=== PATIENT | female | born 1960 | race Caucasian/White ===

== ENCOUNTER 2020-05-25 11:11 | Emergency (ER) | payer OTHER, SELFPAY ==
--- OUTSIDE RECORDS SUMMARY | 2020-05-25 11:13 | XMS REPORT ---
:1960 Author Organization [facility] Address [address] [facility] [address] [place] [address] Care Team Providers Name Role Phone Jose Antonio Unavailable [phone] PROBLEMS Type Condition ICD9-CM [id number] Onset Condition SNOMED Code Notes Code Code Dates Status Problem Loss of R63.0 Active 25978859 appetite ALLERGIES No Known Allergies ENCOUNTERS from 1960 to 2020-05-04 Encounter Location Date Provider Diagnosis [facility] [address] [facility] [address] Apr, Cesar Brady Weight loss R63.4 ; Family Medicine [place], [place] Loss of appetite R63.0 [id number] ; Generalized abdominal pain R10.84 and Night sweat s R61 IMMUNIZATIONS No Information SOCIAL HISTORY Tobacco Use: Social History Observation Description Date Details (start date - stop date) Current Smoker Sex Assigned At : Social History Observation Description Sex Assigned At Unknown Tobacco Use/Smoking Question Answer Notes Are you a current smoker REASON FOR REFERRAL No Information VITAL SIGNS Height 62 in Apr, Weight 116.6 lbs Apr, Temperature 98.1 degrees Fahrenheit Apr, BMI 21.32 kg/m2 Apr, Oximetry 95 % Apr, Respiratory Rate 16 /min Apr, Blood pressure systolic 119 mm Hg Apr, Blood pressure diastolic 63 mm Hg Apr, MEDICATIONS No Known Medications PROCEDURES No Information RESULTS No Results REASON FOR VISIT Establish Care; Stomach Pain; Weight Loss MEDICAL (GENERAL) HISTORY Type Description Date Surgical History partial hysterectomy Surgical History neck surgery 2014 Goals Section No Information Health Concerns No Information MEDICAL EQUIPMENT No Information MENTAL STATUS No Information FUNCTIONAL STATUS No Information ASSESSMENTS Encounter Date Diagnosis Notes Apr, Night sweats (ICD-10 - R61) Apr, Generalized abdominal pain (ICD-10 - R10 .84) Apr, Loss of appetite (ICD-10 - R63.0) Apr, Weight loss (ICD-10 - R63.4) PLAN OF TREATMENT Treatment Notes Assessment Notes Clinical Notes Generalized abdominal pain 59 F presents with abd pain with weight loss, night sweats, tobacco use concerni ng for malignancy vs IBS vs H pylori. Will refer to GI for further work up and evaluation, CT abd/pel and routine labs.-f/u in 2 weeks with results.-trial of OTC PPI and oral fiber Treatment Notes Test Name Order Date CT Abdomen and Pelvis 2020-05-04 Future Test Test Name Order Date CBC With Differential/Platelet [id number] Comp. Metabolic Panel (14) (CMP) [id number] TSH reflex to T4 [id number] Lipase, Serum [id number] Next Appt Details 2 Weeks Reason:labs and imaging Provider Name:Cesar Brady 2020-05-19 09:40 :00 AM, [address], [address], [place], [address], Follow Up:2 Weekslabs and imaging
--- OUTSIDE RECORDS SUMMARY | 2020-05-25 11:13 | XMS REPORT ---
:1960 Author Organization [facility] Address [address] [facility] [address] [place] [address] Care Team Providers Name Role Phone Jose Antonio Unavailable [phone] PROBLEMS Type Condition ICD9-CM [id number] Onset Condition SNOMED Code Notes Code Code Dates Status Problem Loss of R63.0 Active 14334379 appetite ALLERGIES No Known Allergies ENCOUNTERS from 1960 to 2020-05-05 Encounter Location Date Provider [facility] [address] [facility] [address] [place] Apr, [place] [address] IMMUNIZATIONS No Information SOCIAL HISTORY Tobacco Use: Social History Observation Description Date Details (start date - stop date) Current Smoker Sex Assigned At : Social History Observation Description Sex Assigned At Unknown Tobacco Use/Smoking Question Answer Notes Are you a current smoker REASON FOR REFERRAL No Information VITAL SIGNS No information MEDICATIONS No Information PROCEDURES No Information RESULTS No Results REASON FOR VISIT Blood Work Results MEDICAL (GENERAL) HISTORY Type Description Date Surgical History partial hysterectomy Surgical History neck surgery 2014 Goals Section No Information Health Concerns No Information MEDICAL EQUIPMENT No Information MENTAL STATUS No Information FUNCTIONAL STATUS No Information ASSESSMENTS No Information PLAN OF TREATMENT Next Appt Details Provider Name:Cesar Brady 2020-05-19 09:40 :00 AM, [address] [facility] [address], [place], [address],
--- OUTSIDE RECORDS SUMMARY | 2020-05-25 11:13 | XMS REPORT | Continuity of Care Document ---
:1960 Author Organization [facility] t Address [address] [place] [address] Care Team Providers Name Role Phone Unavailable Unavailable Unavailable Problems This patient has no known problems. Allergies, Adverse Reactions, Alerts This patient has no known allergies or adverse reactions. Medications This patient has no known medications. Procedures This patient has no known procedures. Encounters Start End Encounter Admission Attending Care Care Encounter Source Date/Time Date/Time Type Type Clinicians Facility Department ID 2020-05-19 2020-05-[address] [facility] [id number] [facility] 2020-05-05 2020-05-[address] [facility] [id number] [facility] 2020-05-01 2020-05-[address] [facility] [id number] [facility] Results This patient has no known results.
--- OUTSIDE RECORDS SUMMARY | 2020-05-25 11:13 | XMS REPORT ---
:1960 Author Organization [facility] Address [address] [facility] [address] [place] [address] Care Team Providers Name Role Phone Jose Antonio Unavailable [phone] PROBLEMS Type Condition ICD9-CM [id number] Onset Condition SNOMED Code Notes Code Code Dates Status Problem Loss of R63.0 Active 24713720 appetite ALLERGIES No Known Allergies ENCOUNTERS from 1960 to 2020-05-24 Encounter Location Date Provider Diagnosis [facility] [address] [facility] 300 May, Cesar Brady Weight loss R63.4 ; Family Medicine [place], [place] Loss of appetite R63.0 [id number] ; Generalized abdominal pain R10.84 and Night sweat s R61 IMMUNIZATIONS No Information SOCIAL HISTORY Tobacco Use: Social History Observation Description Date Details (start date - stop date) Current Smoker Sex Assigned At : Social History Observation Description Sex Assigned At Unknown Tobacco Use/Smoking Question Answer Notes Are you a current smoker REASON FOR REFERRAL No Information VITAL SIGNS Height 62 in May, Weight 115.0 lbs May, Temperature 98.6 degrees Fahrenheit May, BMI 21.03 kg/m2 May, Oximetry 96 % May, Respiratory Rate 16 /min May, Blood pressure systolic 110 mm Hg May, Blood pressure diastolic 51 mm Hg May, MEDICATIONS Medication SIG (Take, Route, Frequency, Start Date End Date Status Duration) Percocet 5-325 MG 1 tablet as needed Orally every 12 May, 1 7 May, 2020 Active hrs for 14 days PROCEDURES No Information RESULTS No Results REASON FOR VISIT 3 week f/u [phone] MEDICAL (GENERAL) HISTORY Type Description Date Surgical History partial hysterectomy Surgical History neck surgery 2013 Goals Section No Information Health Concerns No Information MEDICAL EQUIPMENT No Information MENTAL STATUS No Information FUNCTIONAL STATUS No Information ASSESSMENTS Encounter Date Diagnosis Notes May, Night sweats (ICD-10 - R61) May, Generalized abdominal pain (ICD-10 - R10 .84) May, Loss of appetite (ICD-10 - R63.0) May, Weight loss (ICD-10 - R63.4) PLAN OF TREATMENT Medication Medication Name Sig Start Date Stop Date Percocet 5-325 MG 1 tablet as needed Orally every 12 hrs May, May, for 14 days Treatment Notes Assessment Notes Clinical Notes Weight loss 59 F presents with weight loss and epigastric pain for several months. labs unremarkable. CT not done, awaiting prio r athorization. Unclear if insurance cover s imaging.in the meantime will order abd U S to R/o gall stones, however atypical s/s for gall stones.-percocet for pain mgmnt until GI evaluation and CT abd. Generalized abdominal pain 59 F presents with abd pain with weight loss, night sweats, tobacco use concerni ng for malignancy vs IBS vs H pylori. Will refer to GI for further work up and evaluation, CT abd/pel and routine labs.-f/u in 2 weeks with results.-trial of OTC PPI and oral fiber Treatment Notes Test Name Order Date Ultrasound : Abdominal 2020-05-24 Next Appt Details Provider Name:Cesar Brady, 2020-06-02 08:20 :00 AM, [address] [facility], [address], [place], [address], Insurance Providers Payer Name Payer Payer Insured Patient Coverage Coverage Address Phone Name Relationship to Start Date End Date Insured [employer] [phone] Adelso Jean self [employer] [place] [address] ([facility]) [phone]
[2020-05-25] MEDS ORDERED: NA CHLORIDE 0.9% 1,000 ML ONE (12:19)
[2020-05-25] MEDS ORDERED: MAGNESIUM SULFATE 1 gm IVPB 1 GM/100 ML BAG IV ONE (12:19)
[2020-05-25 12:33] LABS: Absolute Lymphocytes (CBC) 2.5 K/uL (0.7-4.9); Basophils % 0.7 % (0-1.3); Hematocrit 36.9 % (36.0-45.0); Lymphocytes % 22.5 % (15.3-44.8); MPV 8.1 fL (7.6-11.3); RBC Red Blood Cell Count 4.09 M/uL (3.86-4.86)
[2020-05-25] MEDS ORDERED: FENTANYL CITR 100 MCG/2 ML ONE (12:42)
[2020-05-25 12:58] LABS: ALT/SGPT 13 U/L (12-78); AST/SGOT 10 U/L (15-37); Albumin 3.6 g/dL (3.4-5.0); Alkaline Phosphatase 64 U/L (45-117); BUN Blood Urea Nitrogen 10 mg/dL (7-18); Bicarbonate 27 mmol/L (21-32); Bilirubin Direct < 0.1 mg/dL (0-0.2); Bilirubin Total 0.3 mg/dL (0.2-1.0); Glucose Level 103 mg/dL (74-106); Lipase 105 U/L (73-393); Potassium 3.8 mmol/L (3.5-5.1); Protein, Total 7.1 g/dL (6.4-8.2); Sodium Level 140 mmol/L (136-145)
[2020-05-25 13:14] LABS: Urine RBC <5 /HPF (NONE SEEN)
[2020-05-25 13:15] LABS: Urine Bacteria <20 /HPF (<20)
[2020-05-25 13:16] LABS: Urine Culture Reflex Order NOT NEEDED; Urine Mucus LIGHT /HPF (NONE SEEN)
[2020-05-25] MEDS ORDERED: HYDROCODONE/APAP 7.5/325 MG TAB ONE (14:07)
--- NOTE | 2020-05-25 14:33 | RAD REPORT ---
EXAM DESCRIPTION: CT - Abdomen Pelvis W Contrast - 05/25/2020 2:11 pm CLINICAL HISTORY: ABD PAINpatient reports 3 months of diffuse abdominal pain with no bowel movement 7 days COMPARISON: No comparisons TECHNIQUE: Biphasic, helical CT imaging of the abdomen and pelvis was performed following 100 ml non -ionic IV contrast. Oral contrast was given. All CT scans are performed using dose optimization technique as appropriate and may include automated exposure control or mA/KV adjustment according to patient size. FINDINGS: No suspicious findings in the lung bases. The liver, spleen, and pancreas show no suspicious findings. Gallbladder and biliary tree are also wi thout suspicious finding. Symmetric renal function is seen with no hydronephrosis or suspicious renal mass. No pyelonephritis o r acute parenchymal process. No bladder abnormalities. No adrenal abnormalities. Uterus is not identi fied. Normal-sized ovaries are identified. The uterus may be atrophic or absent. The technologist not ations indicated no surgery according to the patient. No stomach or small bowel abnormality. No appendicitis findings. Cecum and ascending colon have a sli ghtly thickened or nodular appearance to the mucosa. This appearance is favored to be due to incomple te distension by the oral contrast rather than a right colon abnormality. Moderate stool volume is pr esent in the left-side of the colon. There is prominent stool distending the rectum. A 2 centimeter r ight paraovarian cyst is present. No free air, free fluid or inflammatory stranding. No hernia, mass or bulky lymphadenopathy. Patie nt has several nonspecific bilateral inguinal lymph nodes. No suspicious bony findings. IMPRESSION: No appendicitis, bowel obstruction or other surgically emergent finding. Large amount of stool distends the rectum and there is up to moderate stool volume in the colon. This does not have a severe constipation appearance. The slightly thickened or nodular appearance to the right-side of the colon is believed to be due to incomplete distension from oral contrast. No acute no or CRYPTOZOOLOGIST process identifiable. Additional nonacute findings detailed in the body of the report.
--- NOTE | 2020-05-25 14:38 | ER ---
Nurse's Notes [facility] Name: Tiffany Jean Age: 59 yrs Sex: Female : 1960 Arrival Date: 05/25/2020 Time: 11:13 Bed 20 Private MD: Diagnosis: Constipation, unspecified;Generalized abdominal pain;Unspecified ovarian cysts-Right Presentation: 05/25 11:23 Chief complaint: Patient states: Diffuse abdominal pain x 3 months, worse since a month ca1 ago. No BM x 7 days. Denies N/V/D. Coronavirus screen: Client denies travel out of the [place] in the last 14 days. At this time, the client does not indicate any symptoms associated with coronavirus-19. Ebola Screen: Patient negative for fever greater than or equal to 101.5 degrees Fahrenheit, and additional compatible Ebola Virus Disease symptoms Patient denies exposure to infectious person. Patient denies travel to an Ebola-affected area in the 21 days before illness onset. No symptoms or risks identified at this time. Initial Sepsis Screen: Does the patient meet any 2 criteria? No. Patient's initial sepsis screen is negative. Does the patient have a suspected source of infection? No. Patient's initial sepsis screen is negative. Risk Assessment: Do you want to hurt yourself or someone else? Patient reports no desire to harm self or others. Onset of symptoms was May 25, 2020. 11:23 Method Of Arrival: Ambulatory ca1 11:23 Acuity: RUSS 2 ca1 Historical: - Allergies: 11:26 No Known Allergies; ca1 - Home Meds: 11:26 None [Active]; ca1 - PMHx: 11:26 None; ca1 - PSHx: 11:27 neck surgery; ca1 - Immunization history:: Adult Immunizations up to date, Flu vaccine is not up to date. - Social history:: Smoking status: Patient reports the use of cigarette tobacco products, smokes one-half pack cigarettes per day. Screenin:38 Abuse screen: Denies threats or abuse. Nutritional screening: No deficits noted. ll2 Tuberculosis screening: No symptoms or risk factors identified. Fall Risk IV access (20 points). Total Oh Fall Scale indicates No Risk (0-24 pts). Assessment: 12:36 General: Appears in no apparent distress. Behavior is calm, cooperative, appropriate ll2 for age. Pain: Complains of pain in right lower quadrant and left lower quadrant Pain currently is 8 out of 10 on a pain scale. Neuro: Level of Consciousness is awake, alert, obeys commands, Oriented to person, place, time, situation. Cardiovascular: Capillary refill < 3 seconds Patient's skin is warm and dry. Respiratory: Airway is patent Respiratory effort is even, unlabored, Respiratory pattern is regular, symmetrical. GI: Bowel sounds present X 4 quads. Abd is soft X 4 quads Abdomen is tender to palpation. : No signs and/or symptoms were reported regarding the genitourinary system. EENT: No signs and/or symptoms were reported regarding the EENT system. Derm: Skin is intact, is healthy with good turgor, Skin is dry, Skin is pink, warm \T\ dry. Skin temperature is warm. Musculoskeletal: Circulation, motion, and sensation intact. Range of motion: intact in all extremities. 13:00 Reassessment: Patient and/or family updated on plan of care and expected duration. Pain ll2 level reassessed. Patient is alert, oriented x 3, equal unlabored respirations, skin warm/dry/pink. ct notified py finished contrast at 1251. 14:32 Reassessment: Patient and/or family updated on plan of care and expected duration. Pain ll2 level reassessed. Patient is alert, oriented x 3, equal unlabored respirations, skin warm/dry/pink. ERP notified of pain, order obtained for pain meds. administered to RT AC. Vital Signs: 11:23 BP 97 / 55; Pulse 121; Resp 20; Temp 97.5(TE); Pulse Ox 100% on R/A; Weight 52.16 kg ca1 (R); Height 5 ft. 2 in. (157.48 cm) (R); Pain 10/10; 12:39 BP 102 / 72; Pulse 93; Resp 18; Temp 98.6; Pulse Ox 98% on R/A; ll2 13:00 BP 102 / 63; Pulse 75; Resp 16; Pulse Ox 100% on R/A; ll2 14:15 BP 117 / 71; Pulse 75; Resp 16; Pulse Ox 100% on R/A; ll2 11:23 Body Mass Index 21.03 (52.16 kg, 157.48 cm) ca1 ED Course: 11:13 Patient arrived in ED. ag5 11:26 Triage completed. ca1 11:27 Arm band placed on right wrist. ca1 11:31 Aspen Roe RN is Primary Nurse. ll2 11:37 Sejal Larry FNP-C is PHCP. snw 11:37 Jose Martin Schultz MD is Attending Physician. snw 12:41 Initial lab(s) drawn, by me, sent to lab. Urine collected: clean catch specimen, clear. ll2 Inserted saline lock: 20 gauge in right antecubital area, using aseptic technique. Blood collected. 13:01 Patient has correct armband on for positive identification. Call light in reach. Side ll2 rails up X 1. Pulse ox on. NIBP on. 14:11 CT Abd/Pelvis - PO and IV Contrast In Process Unspecified. EDMS 14:11 CT completed. Patient tolerated procedure well. Patient moved to CT via wheelchair. jg6 15:03 No provider procedures requiring assistance completed. IV discontinued, intact, ll2 bleeding controlled, No redness/swelling at site. Pressure dressing applied. Administered Medications: 12:36 Drug: NS 0.9% 1000 ml Route: IV; Rate: 1 bolus; Site: right antecubital; ll2 13:37 Follow up: Response: No adverse reaction; IV Status: Completed infusion; IV Intake: tw2 1000ml 12:36 Drug: Magnesium Sulfate 1 grams Route: IVPB; Infused Over: 1 hrs; Site: right ll2 antecubital; 13:36 Follow up: Response: No adverse reaction; IV Status: Completed infusion tw2 12:36 Drug: fentaNYL (PF) 25 mcg Route: IVP; Site: right antecubital; ll2 13:00 Follow up: Response: No adverse reaction; Pain is unchanged, physician notified; RASS: ll2 Alert and Calm (0) 14:32 Follow up: Response: No adverse reaction; Pain is unchanged, physician notified; RASS: ll2 Alert and Calm (0) 14:31 Drug: fentaNYL (PF) 25 mcg Route: IVP; Site: right antecubital; ll2 14:36 Follow up: Response: No adverse reaction; Pain is decreased; RASS: Alert and Calm (0) ll2 14:46 Follow up: Response: No adverse reaction; RASS: Alert and Calm (0) ll2 15:04 Drug: Magnesium Citrate Liquid 300 ml Route: PO; ll2 15:08 Follow up: Response: No adverse reaction ll2 15:08 Follow up: Response: Medication administered at discharge. ll2 15:04 Drug: Simethicone 240 mg Route: PO; ll2 15:08 Follow up: Response: No adverse reaction ll2 15:08 Follow up: Response: Medication administered at discharge. ll2 Intake: 13:37 IV: 1000ml; Total: 1000ml. tw2 Outcome: 14:38 Discharge ordered by MD. her 15:07 Discharged to home ambulatory. ll2 15:07 Condition: stable 15:07 Discharge instructions given to patient, Instructed on discharge instructions, follow up and referral plans. medication usage, Demonstrated understanding of instructions, follow-up care, medications, Prescriptions given X 2. 15:07 Patient left the ED. ll2 Addendum: 05/28/2020 12:30 Addendum: COVID-19 Result: Negative result given to RN to notify pt. Contacted by: Ade Robertson. Notified pt of negative COVID 19 swab results. Pt advised that even with a negative test result they should remain in isolation until symptom free for 3 days without medication. Pt also advised to return to the ED for worsening symptoms. Signatures: Dispatcher [employer] EDMS Nevaeh Robertson RN RN kl Waters, Shelly, MOTOR GRADER OPERATOR-[employer] MOTOR GRADER OPERATOR-Toya Tidwell RN RN tw2 Kendra Olvera jg6 Rosie Tucker RN RN ca1 Cheryle, Mary ag5 Aspen Roe RN RN ll2 Corrections: (The following items were deleted from the chart) 05/25 11:27 11:26 PSHx: None; ca1 ca1 19:24 15:08 Response: No adverse reaction ll2 ll2 19:25 14:32 Response: No adverse reaction; Pain is unchanged, physician notified; RASS: Alert ll2 and Calm (0) ll2 19:25 14:46 Response: No adverse reaction; RASS: Alert and Calm (0) ll2 ll2 19:25 15:08 Response: No adverse reaction ll2 ll2 19:25 19:25 Response: No adverse reaction; Pain is decreased; RASS: Alert and Calm (0) ll2 ll2
--- NOTE | 2020-05-25 14:39 | EDPHYS ---
Physician Documentation [facility] Eddie Name: Tiffany Jean Age: 59 yrs Sex: Female : 1960 Arrival Date: 05/25/2020 Time: 11:13 Bed 20 Private MD: ED Physician Jose Martin Schultz HPI: 05/25 12:12 This 59 yrs old Female presents to ER via Ambulatory with complaints of snw Abdominal Pain. 12:12 The patient presents with abdominal pain that is diffuse. Onset: The symptoms/episode snw began/occurred gradually, 2 month(s) ago, and became persistent. The symptoms do not radiate. Associated signs and symptoms: none. The symptoms are described as constant. Severity of pain: At its worst the pain was severe. It is unknown whether or not the patient has had similar symptoms in the past. sees Dr. Miller ([facility]). Historical: - Allergies: 11:26 No Known Allergies; ca1 - Home Meds: 11:26 None [Active]; ca1 - PMHx: 11:26 None; ca1 - PSHx: 11:27 neck surgery; ca1 - Immunization history:: Adult Immunizations up to date, Flu vaccine is not up to date. - Social history:: Smoking status: Patient reports the use of cigarette tobacco products, smokes one-half pack cigarettes per day. ROS: 12:11 Constitutional: Negative for fever, chills, and weight loss, Eyes: Negative for injury, snw pain, redness, and discharge, ENT: Negative for injury, pain, and discharge, Neck: Negative for injury, pain, and swelling, Cardiovascular: Negative for chest pain, palpitations, and edema, Respiratory: Negative for shortness of breath, cough, wheezing, and pleuritic chest pain, Back: Negative for injury and pain, : Negative for injury, bleeding, discharge, and swelling, MS/Extremity: Negative for injury and deformity, Skin: Negative for injury, rash, and discoloration, Neuro: Negative for headache, weakness, numbness, tingling, and seizure, Psych: Negative for depression, anxiety, suicide ideation, homicidal ideation, and hallucinations. 12:11 Abdomen/GI: Positive for abdominal pain, constipation. Exam: 12:09 Constitutional: This is a well developed, well nourished patient who is awake, alert, snw and in no acute distress. Head/Face: Normocephalic, atraumatic. Eyes: Pupils equal round and reactive to light, extra-ocular motions intact. Lids and lashes normal. Conjunctiva and sclera are non-icteric and not injected. Cornea within normal limits. Periorbital areas with no swelling, redness, or edema. ENT: Nares patent. No nasal discharge, no septal abnormalities noted. Tympanic membranes are normal and external auditory canals are clear. Oropharynx with no redness, swelling, or masses, exudates, or evidence of obstruction, uvula midline. Mucous membranes moist. Neck: Trachea midline, no thyromegaly or masses palpated, and no cervical lymphadenopathy. Supple, full range of motion without nuchal rigidity, or vertebral point tenderness. No Meningismus. Chest/axilla: Normal chest wall appearance and motion. Nontender with no deformity. No lesions are appreciated. 12:09 Respiratory: Lungs have equal breath sounds bilaterally, clear to auscultation and percussion. No rales, rhonchi or wheezes noted. No increased work of breathing, no retractions or nasal flaring. Back: No spinal tenderness. No costovertebral tenderness. Full range of motion. Skin: Warm, dry with normal turgor. Normal color with no rashes, no lesions, and no evidence of cellulitis. MS/ Extremity: Pulses equal, no cyanosis. Neurovascular intact. Full, normal range of motion. Neuro: Awake and alert, GCS 15, oriented to person, place, time, and situation. Cranial nerves II-XII grossly intact. Motor strength 5/5 in all extremities. Sensory grossly intact. Cerebellar exam normal. Normal gait. Psych: Awake, alert, with orientation to person, place and time. Behavior, mood, and affect are within normal limits. 12:09 Cardiovascular: Rate: tachycardic, Heart sounds: normal. 12:09 Abdomen/GI: Inspection: flat, Bowel sounds: normal, Palpation: moderate abdominal tenderness, in all quadrants. Vital Signs: 11:23 BP 97 / 55; Pulse 121; Resp 20; Temp 97.5(TE); Pulse Ox 100% on R/A; Weight 52.16 kg ca1 (R); Height 5 ft. 2 in. (157.48 cm) (R); Pain 10/10; 12:39 BP 102 / 72; Pulse 93; Resp 18; Temp 98.6; Pulse Ox 98% on R/A; ll2 13:00 BP 102 / 63; Pulse 75; Resp 16; Pulse Ox 100% on R/A; ll2 14:15 BP 117 / 71; Pulse 75; Resp 16; Pulse Ox 100% on R/A; ll2 11:23 Body Mass Index 21.03 (52.16 kg, 157.48 cm) ca1 MDM: 12:03 Patient medically screened. snw 14:39 Data reviewed: vital signs, nurses notes. Data interpreted: Pulse oximetry: on room air snw is 100 %. Interpretation: normal. Counseling: I had a detailed discussion with the patient and/or guardian regarding: the historical points, exam findings, and any diagnostic results supporting the discharge/admit diagnosis, lab results, radiology results, the need for outpatient follow up, to return to the emergency department if symptoms worsen or persist or if there are any questions or concerns that arise at home. Special discussion: Based on the patient's Hx, exam, and Dx evaluation, there is no indication for emergent surgery or inpatient Tx. It is understood by the patient/guardian that if the Sx's persist or worsen they need to return immediately for re-evaluation. Based on the history and exam findings, there is no indication for further emergent testing or inpatient evaluation. I discussed with the patient/guardian the need to see the sales person for further evaluation of the symptoms. I discussed with the patient/guardian the need to see the OB Gyne specialist for further evaluation of the symptoms. I discussed with the patient/guardian the need to see the primary care provider for further evaluation of the symptoms. 05/25 11:39 Order name: Basic Metabolic Panel snw 05/25 11:39 Order name: CBC with Diff; Complete Time: 12:45 snw 05/25 11:39 Order name: Hepatic Function; Complete Time: 12:59 snw 05/25 11:39 Order name: Lipase; Complete Time: 12:59 snw 05/25 11:39 Order name: Urine Culture snw 05/25 11:39 Order name: Urine Microscopic Only; Complete Time: 13:19 snw 05/25 11:40 Order name: Basic Metabolic Panel; Complete Time: 12:59 EDMS 05/25 12:11 Order name: CT Abd/Pelvis - PO and IV Contrast; Complete Time: 14:36 snw 05/25 12:13 Order name: TSH; Complete Time: 13:14 snw 05/25 13:07 Order name: Urine Dipstick--Ancillary (enter results) iw 05/25 11:39 Order name: IV Saline Lock; Complete Time: 12:27 snw 05/25 11:39 Order name: Labs collected and sent; Complete Time: 12:27 snw 05/25 11:39 Order name: Urine Dipstick-Ancillary (obtain specimen); Complete Time: 12:17 snw Administered Medications: 12:36 Drug: NS 0.9% 1000 ml Route: IV; Rate: 1 bolus; Site: right antecubital; ll2 13:37 Follow up: Response: No adverse reaction; IV Status: Completed infusion; IV Intake: tw2 1000ml 12:36 Drug: Magnesium Sulfate 1 grams Route: IVPB; Infused Over: 1 hrs; Site: right ll2 antecubital; 13:36 Follow up: Response: No adverse reaction; IV Status: Completed infusion tw2 12:36 Drug: fentaNYL (PF) 25 mcg Route: IVP; Site: right antecubital; ll2 13:00 Follow up: Response: No adverse reaction; Pain is unchanged, physician notified; RASS: ll2 Alert and Calm (0) 14:32 Follow up: Response: No adverse reaction; Pain is unchanged, physician notified; RASS: ll2 Alert and Calm (0) 14:31 Drug: fentaNYL (PF) 25 mcg Route: IVP; Site: right antecubital; ll2 14:36 Follow up: Response: No adverse reaction; Pain is decreased; RASS: Alert and Calm (0) ll2 14:46 Follow up: Response: No adverse reaction; RASS: Alert and Calm (0) ll2 15:04 Drug: Magnesium Citrate Liquid 300 ml Route: PO; ll2 15:08 Follow up: Response: No adverse reaction ll2 15:08 Follow up: Response: Medication administered at discharge. ll2 15:04 Drug: Simethicone 240 mg Route: PO; ll2 15:08 Follow up: Response: No adverse reaction ll2 15:08 Follow up: Response: Medication administered at discharge. 2 Disposition: 05/26 06:49 Co-signature as Attending Physician, Jose Martin Schultz MD I agree with the assessment and kdr plan of care. Disposition: 05/25/20 14:38 Discharged to Home. Impression: Constipation, unspecified, Generalized abdominal pain, Unspecified ovarian cysts - Right. - Condition is Stable. - Discharge Instructions: Abdominal Pain, Adult, Colic, Constipation, Adult, High-Fiber Diet, Ovarian Cyst, [id number]. - Prescriptions for Diclofenac Sodium 75 mg Oral Tablet Sustained Release - take 1 tablet by ORAL route 2 times per day; 30 tablet. Miralax 17 gram/dose Oral - take 1 packet by ORAL route once daily dilute powder in 8 ounces of water or juice; 1 box. - Medication Reconciliation Form, Thank You Letter, Antibiotic Education, Prescription Opioid Use form. - Follow up: Emergency Department; When: As needed; Reason: Worsening of condition. Follow up: Private Physician; When: 2 - 3 days; Reason: Recheck today's complaints, Continuance of care, Re-evaluation by your physician. Signatures: Dispatcher [employer] EDIA Jose Martin Schultz MD MD kdr Sejal Larry, ACCESS CONTROL OFFICER-C ACCESS CONTROL OFFICER-Csnw Rosie Tucker RN RN ca1 Aspen Roe RN RN ll2 Toya Raines RN tw2 Corrections: (The following items were deleted from the chart) 05/25 11:27 11:26 PSHx: None; ca1 ca1 15:07 14:38 05/25/2020 14:38 Discharged to Home. Impression: Constipation, unspecified; ll2 Generalized abdominal pain; Unspecified ovarian cysts - Right. Condition is Stable. Forms are Medication Reconciliation Form, Thank You Letter, Antibiotic Education, Prescription Opioid Use. Follow up: Emergency Department; When: As needed; Reason: Worsening of condition. Follow up: Private Physician; When: 2 - 3 days; Reason: Recheck today's complaints, Continuance of care, Re-evaluation by your physician. snw
[2020-05-25] MEDS ORDERED: MAGNESIUM CITRATE 300 ML BOT ONE (15:05)
[2020-05-25] MEDS ORDERED: SIMETHICONE 80 MG TAB ONE (15:05)
[2020-05-25 15:37] LABS: Urine Blood NEGATIVE (NEG); Urine Glucose NEGATIVE (NEG); Urine Protein NEGATIVE (NEG); Urine Specific Gravity 1.025 (1.005-1.030); Urine pH 6.5 (5.0-7.0)
[2020-05-25 16:11] VITALS: TEMP 98.6
[2020-05-25 16:12] VITALS: O2SAT 100
[2020-05-25 16:14] VITALS: BP 117/71
== END 2020-05-25 15:07 | disposition home or self-care (01) ==
LOC: ER 11:11
DX: K59.00 Constipation, unspecified (principal); N83.201 Unspecified ovarian cyst, right side; F17.210 Nicotine dependence, cigarettes, uncomplicated
CPT/HCPCS: 36415; 74177; 80048; 80076; 81003; 81015; 83690; 84443; 85025; 87086; 87088; 96365; 96375; 99284; J3010; J3475; J7030; Q9967

== ENCOUNTER 2021-03-27 16:59 | Emergency (ER) | payer SELFPAY ==
--- OUTSIDE RECORDS SUMMARY | 2021-03-27 17:01 | XMS REPORT | Continuity of Care Document ---
:1960 Author Organization [facility] t Address [address] [place] [address] Care Team Providers Name Role Phone Unavailable Unavailable Unavailable Problems This patient has no known problems. Allergies, Adverse Reactions, Alerts This patient has no known allergies or adverse reactions. Medications This patient has no known medications. Procedures This patient has no known procedures. Encounters Start End Encounter Admission Attending Care Care Encounter Source Date/Time Date/Time Type Type Clinicians Facility Department ID 2020-07-01 2020-07-[address] [facility] [id number] [facility] 2020-06-02 2020-06-02 [facility] [id number] [facility] 2020-05-19 2020-05-19 [facility] [id number] [facility] 2020-05-05 2020-05-[address] [facility] [id number] [facility] 2020-05-01 2020-05-01 Out[facility] [id number] [facility] Results This patient has no known results.
[2021-03-27 18:09] LABS: Urine Blood Negative (Negative); Urine Glucose Negative (Negative); Urine Protein Negative (Negative)
[2021-03-27] MEDS ORDERED: NA CHLORIDE 0.9% 1,000 ML ONE (18:14)
[2021-03-27 18:19] LABS: Basophils % 0.2 % (0-1.3); Hematocrit 33.7 % (36.0-45.0); Lymphocytes % 13.8 % (15.3-44.8); MPV 8.8 fL (7.6-11.3); RBC Red Blood Cell Count 3.73 M/uL (3.86-4.86)
[2021-03-27 18:35] LABS: ALT/SGPT 11 U/L (12-78); AST/SGOT 6 U/L (15-37); Albumin 3.5 g/dL (3.4-5.0); Alkaline Phosphatase 76 U/L (45-117); BUN Blood Urea Nitrogen 12 mg/dL (7-18); Bicarbonate 23 mmol/L (21-32); Bilirubin Direct < 0.1 mg/dL (0-0.2); Bilirubin Total 0.2 mg/dL (0.2-1.0); Glucose Level 91 mg/dL (74-106); Lipase 89 U/L (73-393); Magnesium 2.1 mg/dL (1.8-2.4); Potassium 3.7 mmol/L (3.5-5.1); Protein, Total 6.8 g/dL (6.4-8.2); Sodium Level 137 mmol/L (136-145); Troponin (Emerg Dept Use Only) < 0.02 ng/mL (0.0-0.045)
[2021-03-27 18:55] LABS: Absolute Lymphocytes (CBC) 2.8 K/uL (0.7-4.9)
--- NOTE | 2021-03-27 19:08 | RAD REPORT ---
EXAM DESCRIPTION: CTAngio Aorta For Dissection - 03/27/2021 6:50 pm CLINICAL HISTORY: . back pain, near syncope COMPARISON: No comparisonsAbdomen Pelvis W Contrast dated 05/25/2020 TECHNIQUE: Biphasic CT imaging of the abdomen and pelvis was performed with 100 ml non-ionic IV cont rast. All CT scans are performed using dose optimization technique as appropriate and may include automated exposure control or mA/KV adjustment according to patient size. MIPS were performed. FINDINGS: Thorax: Ascending thoracic aortic ectasia measuring approximately 3.7 cm. No evidence of t horacic aortic aneurysm or dissection. Emphysema noted. Lung apices are not included in the field of view. No acute process in the lungs. No mediastinal lymphadenopathy. No pericardial effusion. Normal heart size. Abdomen/pelvis: No focal liver lesions are identified. The gallbladder is unremarkable. No adrenal le sions. The spleen is within normal limits. No hydronephrosis. 2.4 cm cystic left adnexal lesion, prev iously 2.1 cm. No suspicious pancreatic lesions or pancreatic ductal dilatation. Duodenum diverticulu m. No bowel obstruction. Abdominal aortic atherosclerosis. No aneurysm. No dissection is identified. No stenosis. IMPRESSION: No aortic aneurysm or dissection is identified. No pulmonary embolus. No acute findings within the chest, abdomen, or pelvis. Left adnexal cyst measuring 2.4 cm. This previously measured 2.1 cm. Though the change is only mild, consider 12 month pelvic ultrasound for follow-up.
[2021-03-27 20:03] LABS: Blood Morphology Comment NOT SEEN (NOT SEEN); Platelet Estimate DECR
[2021-03-27 20:49] LABS: SARS-COV-2 RT PCR NEGATIVE (NEGATIVE)
--- NOTE | 2021-03-27 21:24 | ER ---
Nurse's Notes [facility] Name: Tiffany Jean Age: 60 yrs Sex: Female : 1960 Arrival Date: 03/27/2021 Time: 17:14 Bed 16 Private MD: Diagnosis: Syncope Near;Abnormal electrocardiogram [ECG] [EKG] Presentation: 03/27 17:14 Chief complaint: EMS states: EMS was called out for AMS. patient was alert on arrival. zb Patient was found at [facility], states she had 3 beer. patient was outside when she felt weak, dizzy, and lethergic. Family called EMS. patient was given 250ml of NS. BLG 114. Coronavirus screen: At this time, the client does not indicate any symptoms associated with coronavirus-19. Ebola Screen: No symptoms or risks identified at this time. Initial Sepsis Screen: Does the patient meet any 2 criteria? No. Patient's initial sepsis screen is negative. Does the patient have a suspected source of infection? No. Patient's initial sepsis screen is negative. Risk Assessment: Do you want to hurt yourself or someone else? Patient reports no desire to harm self or others. Onset of symptoms was March 27, 2021. 17:14 Acuity: RUSS 3 zb 17:14 Method Of Arrival: EMS: [facility] Triage Assessment: 17:44 General: Appears in no apparent distress. Behavior is calm. Pain: Complains of pain in zb back, right upper quadrant and left upper quadrant Pain currently is 8 out of 10 on a pain scale. Neuro: Level of Consciousness is awake, obeys commands, lethargic, Oriented to person, place, time, situation, Correction Officer Head are equal bilaterally Moves all extremities. Gait is steady. Cardiovascular: Capillary refill < 3 seconds Patient's skin is warm and dry. Respiratory: Airway is patent. : Urine is clear. Derm: Skin is intact, is healthy with good turgor. Musculoskeletal: Range of motion: intact in all extremities. Historical: - Allergies: 17:43 No Known Allergies; zb - Home Meds: 17:43 IBS medication [Active]; zb - PMHx: 17:43 Irritable bowel syndrome; zb - PSHx: 17:43 neck sx; zb - Immunization history:: Adult Immunizations up to date, Client reports having NOT received the Covid vaccine. - Social history:: Smoking status: Patient reports the use of cigarette tobacco products, smokes two packs cigarettes per day. - Family history:: not pertinent. - Hospitalizations: : No recent hospitalization is reported. Screenin:46 Abuse screen: Denies threats or abuse. Denies injuries from another. Nutritional zb screening: No deficits noted. Tuberculosis screening: No symptoms or risk factors identified. Fall Risk None identified. Assessment: 17:46 Reassessment: see triage assessment. zb 18:44 Reassessment: Patient appears in no apparent distress at this time. Patient and/or zb family updated on plan of care and expected duration. Pain level reassessed. Patient is alert, oriented x 3, equal unlabored respirations, skin warm/dry/pink. patient ambulates to restroom and back. gait even and steady. 19:30 Reassessment: Patient appears in no apparent distress at this time. Patient and/or zb family updated on plan of care and expected duration. Pain level reassessed. Patient is alert, oriented x 3, equal unlabored respirations, skin warm/dry/pink. 20:09 Reassessment: Patient appears in no apparent distress at this time. Patient and/or zb family updated on plan of care and expected duration. Pain level reassessed. Patient is alert, oriented x 3, equal unlabored respirations, skin warm/dry/pink. family remains at bedside. patient continue to ambulated to restroom at [facility]. Vital Signs: 17:14 BP 97 / 57; Pulse 96; Resp 16; Pulse Ox 97% on R/A; Weight 45.5 kg; Height 5 ft. 2 in. zb (157.48 cm); Pain 8/10; 17:47 BP 109 / 55; Pulse 92; Resp 16; Pulse Ox 98% on R/A; zb 18:30 BP 104 / 52; Pulse 87; Resp 16; Pulse Ox 100% on R/A; zb 18:30 BP 109 / 55; Pulse 81; Resp 17; Pulse Ox 97% on R/A; zb 20:09 BP 103 / 50; Pulse 82; Resp 18; Pulse Ox 98% on R/A; zb 17:14 Body Mass Index 18.34 (45.50 kg, 157.48 cm) zb ED Course: 17:14 Patient arrived in ED. zb 17:22 Ken Aaron MD is Attending Physician. rn 17:43 Triage completed. zb 17:46 Patient has correct armband on for positive identification. Pulse ox on. NIBP on. Door zb closed. Noise minimized. 17:47 Maintain EMS IV. Dressing intact. Good blood return noted. Site clean \T\ dry. Gauge \T\ zb site: 18G LFA . 18:18 Velma Tolentino, DAMON is Primary Nurse. zb 18:50 CT Aorta for Dissection In Process Unspecified. EDMS 19:03 Kj Christian PA is PHCP. cp 21:00 No provider procedures requiring assistance completed. IV discontinued, intact, zb bleeding controlled, No redness/swelling at site. Pressure dressing applied. Administered Medications: 18:00 Drug: NS 0.9% 1000 ml Route: IV; Rate: 1000 ml; Site: left forearm; zb 19:00 Follow up: IV Status: Completed infusion; IV Intake: 1000ml zb Intake: 19:00 IV: 1000ml; Total: 1000ml. zb Outcome: 21:30 AMA AMA form signed zb 21:41 Patient left the ED. zb 12 00:09 Condition: stable zb Signatures: Dispatcher [employer] EDAZ Ken Aaron MD MD rn Kj Christian PA PA cp Velma Tolentino RN RN zb
--- NOTE | 2021-03-27 21:24 | EDPHYS ---
Physician Documentation [facility] Name: Tiffany Jean Age: 60 yrs Sex: Female : 1960 Arrival Date: 03/27/2021 Time: 17:14 Bed 16 Private MD: ED Physician Ken Aaron HPI: 03/27 17:36 This 60 yrs old Female presents to ER via Unassigned with complaints of rn Generalized weakness and near syncope. 17:36 The patient has experienced near-syncope. Onset: The symptoms/episode began/occurred rn just prior to arrival. Duration: This was a single episode. Associated injury: The patient did not suffer any apparent associated injury. Associated signs and symptoms: Pertinent positives: dizziness, lightheadedness, Pertinent negatives: chest pain, confusion, headache, seizure, shortness of breath. Current symptoms: Dizziness and generalized weakness. The patient has experienced similar episodes in the past. The patient has not recently seen a physician. 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 Denies headache or focal weakness. Denies chest pain/shortness of breath. Is an active smoker. States that she has episodes like this frequently for the last year has been evaluated for this without any acute findings. Reports significant weight loss over the last year. No blood in stool.. Historical: - Allergies: 17:43 No Known Allergies; zb - Home Meds: 17:43 IBS medication [Active]; zb - PMHx: 17:43 Irritable bowel syndrome; zb - PSHx: 17:43 neck sx; zb - Immunization history:: Adult Immunizations up to date, Client reports having NOT received the Covid vaccine. - Social history:: Smoking status: Patient reports the use of cigarette tobacco products, smokes two packs cigarettes per day. - Family history:: not pertinent. - Hospitalizations: : No recent hospitalization is reported. ROS: 17:36 Constitutional: Negative for fever, chills, positive for weight loss Eyes: Negative for rn injury, pain, redness, and discharge, ENT: Negative for injury, pain, and discharge, Neck: Negative for injury, pain, and swelling, Cardiovascular: Negative for chest pain, palpitations, and edema, Respiratory: Negative for shortness of breath, cough, wheezing, and pleuritic chest pain, Abdomen/GI: Negative for abdominal pain, nausea, vomiting, diarrhea, and constipation, Back: Negative for injury and pain, : Negative for injury, bleeding, discharge, and swelling, MS/Extremity: Negative for injury and deformity, Skin: Negative for injury, rash, and discoloration, Neuro: Negative for headache,numbness, tingling, and seizure. 17:36 All other systems are negative. Exam: 17:36 Constitutional: Thin female, appears tired, no acute distress. Head/Face: rn Normocephalic, atraumatic. Eyes: Periorbital areas with no swelling, redness, or edema. Cardiovascular: Regular rate and rhythm. No pulse deficits. Respiratory: No increased work of breathing, no retractions or nasal flaring. Abdomen/GI: Soft mild lower abdominal tenderness no rebound. Back: No spinal tenderness. No costovertebral tenderness. Full range of motion. Skin: Warm, dry MS/ Extremity: Pulses equal, no cyanosis. Equal circumference. Neuro: Awake and alert, GCS 15, oriented to person, place, time, and situation. Cranial nerves II-XII grossly intact. Motor strength 4/5 in all extremities. Sensory grossly intact. 18:45 ECG was reviewed by the Attending Physician. Vital Signs: 17:14 BP 97 / 57; Pulse 96; Resp 16; Pulse Ox 97% on R/A; Weight 45.5 kg; Height 5 ft. 2 in. zb (157.48 cm); Pain 8/10; 17:47 BP 109 / 55; Pulse 92; Resp 16; Pulse Ox 98% on R/A; zb 18:30 BP 104 / 52; Pulse 87; Resp 16; Pulse Ox 100% on R/A; zb 18:30 BP 109 / 55; Pulse 81; Resp 17; Pulse Ox 97% on R/A; zb 20:09 BP 103 / 50; Pulse 82; Resp 18; Pulse Ox 98% on R/A; zb 17:14 Body Mass Index 18.34 (45.50 kg, 157.48 cm) zb MDM: 17:22 Patient medically screened. rn 21:21 Data reviewed: vital signs, nurses notes, lab test result(s), EKG, radiologic studies, cp CT scan, plain films, I have discussed the patient's presentation/case with the attending Emergency Department Physician;. Test interpretation: by ED physician or midlevel provider: ECG, plain radiologic studies. Counseling: I had a detailed discussion with the patient and/or guardian regarding: the historical points, exam findings, and any diagnostic results supporting the discharge/admit diagnosis, lab results, radiology results, the need for further work-up and treatment in the hospital. Refusal of service: The patient/guardian displays adequate decision making capability and despite a detailed discussion of alternatives, benefits, risks, and consequences refuses: Admission to the hospital for further work-up and treatment. 03/27 17:23 Order name: Basic Metabolic Panel 03/27 17:23 Order name: CBC with Diff; Complete Time: 20:21 03/27 20:22 Interpretation: Normal except: WBC 20.00; RBC 3.73; HGB 11.3; HCT 33.7; PLT 150; EVONNE% cp 80.5; LYM% 13.8; NEUT A 16.1. 03/27 17:23 Order name: Hepatic Function; Complete Time: 18:37 03/27 17:23 Order name: Lipase; Complete Time: 18:37 03/27 17:23 Order name: Magnesium; Complete Time: 18:37 03/27 17:23 Order name: Troponin (emerg Dept Use Only); Complete Time: 18:37 03/27 17:23 Order name: CT Aorta for Dissection; Complete Time: 20:21 03/27 17:24 Order name: Basic Metabolic Panel; Complete Time: 18:37 [facility] 03/27 18:09 Order name: Urine Dipstick-Ancillary; Complete Time: 18:14 [facility] 03/27 20:03 Order name: Manual Differential; Complete Time: 20:21 [facility] 03/27 20:49 Order name: COVID-19/FLU A+B; Complete Time: 07:45 [facility] 03/27 17:23 Order name: EKG; Complete Time: 17:24 03/27 17:23 Order name: Cardiac monitoring; Complete Time: 18:44 03/27 17:23 Order name: EKG - Nurse/Tech; Complete Time: 18:44 03/27 17:23 Order name: IV Saline Lock; Complete Time: 17:48 03/27 17:23 Order name: Labs collected and sent; Complete Time: 17:48 rn 03/27 17:23 Order name: O2 Per Protocol; Complete Time: 17:48 rn 03/27 17:23 Order name: O2 Sat Monitoring; Complete Time: 17:48 rn 03/27 17:23 Order name: Urine Dipstick-Ancillary (obtain specimen); Complete Time: 18:47 rn EC:45 Rate is 80 beats/min. Rhythm is regular. UT interval is normal. QRS interval is normal. cp QT interval is prolonged at 402 msec. T waves are Inverted in leads V2, V3, V4. Interpreted by me. Reviewed by me. Administered Medications: 18:00 Drug: NS 0.9% 1000 ml Route: IV; Rate: 1000 ml; Site: left forearm; zb 19:00 Follow up: IV Status: Completed infusion; IV Intake: 1000ml zb Disposition: 03/28 07:46 Co-signature as Attending Physician, Ken Aaron MD I agree with the assessment and rn plan of care. Attestation: The patient's history, exam findings, diagnostics, and a summary of any interventions or procedures was reviewed in detail with Kj MCCARTY. Disposition Summary: 03/27/21 21:23 Left Against Medical Advice Location: Home cp Problem: new cp Symptoms: have improved cp Condition: Stable cp Diagnosis - Syncope Near cp - Abnormal electrocardiogram [ECG] [EKG] cp Followup: cp - With: Private Physician - When: 2 - 3 days - Reason: Recheck today's complaints Discharge Instructions: - Discharge Summary Sheet cp - Near-Syncope cp - Aspirin and Your Heart cp Signatures: Dispatcher [employer] Ken Shannon MD MD rn Page, Corey, PA PA cp Brown, Zipporah RN RN zb Corrections: (The following items were deleted from the chart) 03/27 17:44 17:36 Constitutional: Thin female, appears tired, no acute distress. rn rn 19:40 18:59 Influenza Screen (A \T\ B)+BA.LAB.BRZ ordered. EDMS EDMS 19:42 18:59 CORONAVIRUS+MR.LAB.BRZ ordered. EDMS EDMS
[2021-03-27] MEDS ORDERED: carvediloL 6.25 MG TAB ONE (21:49)
[2021-03-27] MEDS ORDERED: LORAZEPAM 0.5 MG TABLET ONE (21:49)
[2021-03-27 21:52] VITALS: BP 103/50; O2SAT 98
== END 2021-03-27 21:41 | disposition left against medical advice (07) ==
LOC: ER 16:59
DX: R94.31 Abnormal electrocardiogram [ECG] [EKG] (principal); F17.210 Nicotine dependence, cigarettes, uncomplicated; Z20.822 Contact with and (suspected) exposure to COVID-19
CPT/HCPCS: 0240U; 36415; 71275; 74175; 80048; 80076; 81003; 83690; 83735; 84484; 85025; 93005; 96360; 99284; J7030

== ENCOUNTER 2021-04-02 07:31 | Inpatient (IN) | payer SELFPAY ==
[2021-04-02 08:00] LABS: Urine Blood Negative (Negative); Urine Glucose Negative (Negative); Urine Protein Negative (Negative); Urine pH 6.5 (5.0-7.0)
--- NOTE | 2021-04-02 08:31 | RAD REPORT ---
EXAM DESCRIPTION: CT - Head Brain Wo Cont - 04/02/2021 8:22 am CLINICAL HISTORY: SYNCOPE COMPARISON: Cholangiogram dated 06/27/2019No comparisons TECHNIQUE: Axial 5 mm thick images of the head were obtained without IV contrast. All CT scans are performed using dose optimization technique as appropriate and may include automated exposure control or mA/KV adjustment according to patient size. FINDINGS: No intracranial hemorrhage, mass, edema or shift of mid-line structures. No acute infarcti on changes seen. No abnormal extra-axial fluid collections. Ventricles are normal. Mastoid air cells and visualized portions of the paranasal sinuses are clear. No acute bony findings. IMPRESSION: Negative non-contrast CT head examination.
--- NOTE | 2021-04-02 08:51 | RAD REPORT ---
EXAM DESCRIPTION: RAD - Chest Single View - 04/02/2021 8:26 am CLINICAL HISTORY: chest pain, syncope COMPARISON: None TECHNIQUE: AP portable chest image was obtained 04/02/2021 8:26 am . FINDINGS: Lungs are clear. Heart and vasculature are normal. No measurable pleural effusion and no p neumothorax. No acute bony abnormality seen. No acute aortic findings suspected. IMPRESSION: No acute cardiopulmonary process.
[2021-04-02 08:58] LABS: Protime INR 1.08
[2021-04-02 09:03] LABS: Absolute Lymphocytes (CBC) 2.4 K/uL (0.7-4.9); Basophils % 0.3 % (0-1.3); Hematocrit 34.1 % (36.0-45.0); Lymphocytes % 12.1 % (15.3-44.8); MPV 8.5 fL (7.6-11.3); RBC Red Blood Cell Count 3.74 M/uL (3.86-4.86)
[2021-04-02 09:18] LABS: ALT/SGPT 16 U/L (12-78); AST/SGOT 9 U/L (15-37); Albumin 3.8 g/dL (3.4-5.0); Alkaline Phosphatase 86 U/L (45-117); BUN Blood Urea Nitrogen 12 mg/dL (7-18); Bicarbonate 28 mmol/L (21-32); Bilirubin Direct < 0.1 mg/dL (0-0.2); Bilirubin Total 0.3 mg/dL (0.2-1.0); Glucose Level 91 mg/dL (74-106); Magnesium 2.2 mg/dL (1.8-2.4); NT PRO-BNP 98 pg/mL (<125); Potassium 4.1 mmol/L (3.5-5.1); Protein, Total 7.3 g/dL (6.4-8.2); Sodium Level 138 mmol/L (136-145); Troponin (Emerg Dept Use Only) < 0.02 ng/mL (0.0-0.045)
[2021-04-02] MEDS ORDERED: NA CHLORIDE 0.9% 1,000 ML ONE ×2 (09:22→14:54)
[2021-04-02 09:45] LABS: SARS-COV-2 RT PCR NEGATIVE (NEGATIVE)
[2021-04-02 10:27] LABS: Blood Morphology Comment NOT SEEN (NOT SEEN); Platelet Estimate ADEQ
[2021-04-02 10:45] LABS: Toxic Granulation 1+
--- NOTE | 2021-04-02 10:49 | ER ---
Nurse's Notes [facility] Name: Tiffany Jean Age: 60 yrs Sex: Female : 1960 Arrival Date: 04/02/2021 Time: 07:32 Bed 20 Private MD: Diagnosis: Syncope Near;Chest pain, unspecified Presentation: 04/02 08:02 Chief complaint: Patient states: pt was seen here on Monday and signed out AMA. pt tr6 c/o SOB, syncope, dull chest ache, b/l leg pain. pt reports that when she was here previously her EKG showed "blockages". Coronavirus screen: At this time, unable to obtain information related to travel outside the [place] Ebola Screen: No symptoms or risks identified at this time. Initial Sepsis Screen: Does the patient meet any 2 criteria? No. Patient's initial sepsis screen is negative. Does the patient have a suspected source of infection?. Risk Assessment: Do you want to hurt yourself or someone else? Patient reports no desire to harm self or others. Onset of symptoms was March 27, 2021. 08:02 Method Of Arrival: Ambulatory tr6 08:02 Acuity: RUSS 3 tr6 Triage Assessment: 08:09 General: Appears distressed, uncomfortable, slender, emaciated, Behavior is calm, tr6 cooperative, appropriate for age. Pain:. Pain: Complains of pain in "all over," b/l legs, left arm. EENT: No deficits noted. Neuro: No deficits noted. Cardiovascular: Reports chest pain, Heart tones S1 S2 Rhythm is regular Chest pain radiates to left arm(s). Respiratory: Reports shortness of breath at rest on exertion. GI: Bowel sounds hypoactive in right upper quadrant, left upper quadrant, right lower quadrant and left lower quadrant Abd is soft and non tender Guarding noted. : No deficits noted. Derm: No deficits noted. Musculoskeletal: Range of motion: intact in all extremities, Reports pain in left arm, right leg and left leg. Historical: - Allergies: 08:09 No Known Allergies; tr6 - Home Meds: 08:07 Linzess oral [Active]; Pepcid AC 20 mg Oral tab 1 tab once daily [Active]; tr6 - PMHx: 08:07 Irritable bowel syndrome; tr6 - PSHx: 08:07 Neck sx; tr6 08:09 hysterectomy; tr6 - Immunization history:: Adult Immunizations up to date, Client reports having NOT received the Covid vaccine. - Social history:: Smoking status: Patient reports the use of cigarette tobacco products, unknown amount. Screenin:12 Abuse screen: Denies threats or abuse. Denies injuries from another. Nutritional tr6 screening: Had unintentional weight loss of 10 pounds or more. Tuberculosis screening: No symptoms or risk factors identified. Fall Risk Fall in past 12 months (25 points). Assessment: 09:06 Reassessment: see triage assessment. tr6 Vital Signs: 08:02 BP 100 / 69; Pulse 73; Resp 18; Temp 98.6(O); Pulse Ox 100% on R/A; Weight 45.09 kg; tr6 Height 5 ft. 2 in. (157.48 cm); 09:44 BP 95 / 56 Supine; Pulse 68; mt 09:44 BP 103 / 62 Sitting; Pulse 74; mt 09:44 BP 97 / 59 Standing; Pulse 79; mt 12:31 BP 95 / 56 Supine; Pulse 68; tr6 12:31 BP 103 / 62 Sitting; Pulse 74; tr6 12:31 BP 97 / 59 Standing; Pulse 79; tr6 08:02 Body Mass Index 18.18 (45.09 kg, 157.48 cm) tr6 ED Course: 07:32 Patient arrived in ED. am2 07:43 Meggan Lemus, DAMON is Primary Nurse. tr6 07:59 Nixon Allen PA is PHCP. [facility] 07:59 Jose Martin Schultz MD is Attending Physician. [facility] 08:07 Triage completed. tr6 08:12 Resting quietly. tr6 08:12 Patient has correct armband on for positive identification. Placed in gown. Bed in low tr6 position. Side rails up X2. monitoring engineer on. Pulse ox on. NIBP on. Door closed. Noise minimized. Visitors limited. Lights dimmed. Moved to private room. Warm blanket given. Diet: Patient is NPO. 08:12 No provider procedures requiring assistance completed. tr6 08:13 Arm band placed on right wrist. EKG completed in triage. Results shown to MD. EKG tr6 completed in triage. Results shown to MD. 08:20 CT Head Brain wo Cont In Process Unspecified. EDMS 08:25 XRAY Chest (1 view) In Process Unspecified. EDMS 08:56 Inserted saline lock: 18 gauge in left antecubital area, using aseptic technique. Blood tr6 collected. 10:49 Nasim Aaron MD is Hospitalizing Provider. jmm 11:13 Patient admitted, IV remains in place. tr6 Administered Medications: 09:05 Drug: NS 0.9% 1000 ml Route: IV; Rate: 1 bolus; Site: left antecubital; tr6 Outcome: 10:49 Decision to Hospitalize by Provider. jmm 11:12 Admitted to tr6 11:12 Condition: stable 11:12 Instructed on the need for admit. 19:32 Patient left the ED. kc4 Signatures: Dispatcher [employer] EDMS Nixon Allen PA PA jmm Bridget Anand Moriah mt Ramnanan, Tiffany, RN RN tr6 Rosey Celaya kc4 Corrections: (The following items were deleted from the chart) 08:09 08:07 Home Meds: IBS medication; tr6 tr6
--- NOTE | 2021-04-02 10:50 | EDPHYS ---
Physician Documentation [facility] Name: Tiffany Jean Age: 60 yrs Sex: Female : 1960 Arrival Date: 04/02/2021 Time: 07:32 Bed 20 Private MD: ED Physician Jose Martin Schultz HPI: 04/02 08:00 This 60 yrs old Female presents to ER via Ambulatory with complaints of Leg jmm Pain, Back Pain, racing heart. 08:00 The patient presents with pain. This is a 60-year-old female with history of irritable jmm bowel syndrome the presents emerged part with complaints of ongoing near syncopal episodes along with lower back pain. Patient was evaluated on the 11 of this month after a syncopal episode. Patient states she left AMA. Patient denies actual syncopal episodes but states she does feel like she is going to pass out. Patient also complains of intermittent dull chest pain. 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 Historical: - Allergies: 08:09 No Known Allergies; tr6 - Home Meds: 08:07 Linzess oral [Active]; Pepcid AC 20 mg Oral tab 1 tab once daily [Active]; tr6 - PMHx: 08:07 Irritable bowel syndrome; tr6 - PSHx: 08:07 Neck sx; tr6 08:09 hysterectomy; tr6 - Immunization history:: Adult Immunizations up to date, Client reports having NOT received the Covid vaccine. - Social history:: Smoking status: Patient reports the use of cigarette tobacco products, unknown amount. ROS: 08:00 Constitutional: Negative for fever, chills, and weight loss. jmm 08:00 Cardiovascular: Positive for chest pain. 08:00 Neuro: Positive for near syncope. 08:00 All other systems are negative. Exam: 08:00 Constitutional: This is a well developed, well nourished patient who is awake, alert, jmm and in no acute distress. Head/Face: atraumatic. Eyes: EOMI, no conjunctival erythema appreciated ENT: Moist Mucus Membranes Neck: Trachea midline, Supple Chest/axilla: Normal chest wall appearance and motion. Cardiovascular: Regular rate and rhythm. No edema appreciated Respiratory: Normal respirations, no respiratory distress appreciated Abdomen/GI: Non distended, soft Back: Normal ROM Skin: General appearance color normal MS/ Extremity: Moves all extremities, no obvious deformities appreciated, no edema noted to the lower extremities Neuro: Awake and alert, normal gait Psych: Behavior is normal, Mood is normal, Patient is cooperative and pleasant Vital Signs: 08:02 BP 100 / 69; Pulse 73; Resp 18; Temp 98.6(O); Pulse Ox 100% on R/A; Weight 45.09 kg; tr6 Height 5 ft. 2 in. (157.48 cm); 09:44 BP 95 / 56 Supine; Pulse 68; mt 09:44 BP 103 / 62 Sitting; Pulse 74; mt 09:44 BP 97 / 59 Standing; Pulse 79; mt 12:31 BP 95 / 56 Supine; Pulse 68; tr6 12:31 BP 103 / 62 Sitting; Pulse 74; tr6 12:31 BP 97 / 59 Standing; Pulse 79; tr6 08:02 Body Mass Index 18.18 (45.09 kg, 157.48 cm) tr6 MDM: 08:04 Patient medically screened. mehul 10:48 Data reviewed: vital signs, nurses notes. Counseling: I had a detailed discussion with mehul the patient and/or guardian regarding: the historical points, exam findings, and any diagnostic results supporting the discharge/admit diagnosis, lab results, radiology results, the need for further work-up and treatment in the hospital. 04/02 08:00 Order name: Urine Dipstick-Ancillary; Complete Time: 08:09 [facility] 04/02 08:05 Order name: Basic Metabolic Panel; Complete Time: 09:20 [facility] 04/02 08:05 Order name: CBC with Diff; Complete Time: 10:46 [facility] 04/02 08:05 Order name: LFT's; Complete Time: 09:20 [facility] 04/02 08:05 Order name: Magnesium; Complete Time: 09:20 [facility] 04/02 08:05 Order name: NT PRO-BNP; Complete Time: 09:20 [facility] 04/02 08:05 Order name: PT-INR; Complete Time: 09:06 [facility] 04/02 08:05 Order name: Troponin (emerg Dept Use Only); Complete Time: 09:20 [facility] 04/02 08:13 Order name: Lactate; Complete Time: 09:16 [facility] 04/02 08:13 Order name: Blood Culture Adult (2) [facility] 04/02 08:13 Order name: Procalcitonin; Complete Time: 09:33 [facility] 04/02 08:14 Order name: Flu [facility] 04/02 08:05 Order name: XRAY Chest (1 view); Complete Time: 08:54 [facility] 04/02 08:05 Order name: EKG; Complete Time: 08:05 [facility] 04/02 08:05 Order name: CT Head Brain wo Cont; Complete Time: 08:40 [facility] 04/02 09:05 Order name: Manual Differential; Complete Time: 10:46 [facility] 04/02 09:45 Order name: COVID-19/FLU A+B; Complete Time: 09:50 [facility] 04/02 11:02 Order name: Slides for Pathologist Review [facility] 04/02 11:25 Order name: CONS Physician Consult [facility] 04/02 13:56 Order name: CT; Complete Time: 14:10 [facility] 04/02 14:02 Order name: US; Complete Time: 14:10 [facility] 04/02 15:54 Order name: T4 Free; Complete Time: 16:01 [facility] 04/02 15:54 Order name: Thyroid Stimulating Hormone; Complete Time: 16:01 [facility] 04/02 16:11 Order name: Troponin I; Complete Time: 16:13 [facility] 04/02 18:24 Order name: C-Reactive Protein [facility] 04/02 18:46 Order name: CBC with Automated Diff [facility] 04/02 18:46 Order name: Sedimentation Rate, [place] [facility] 04/02 08:05 Order name: Cardiac monitoring; Complete Time: 08:15 [facility] 04/02 08:05 Order name: EKG - Nurse/Tech; Complete Time: 08:15 [facility] 04/02 08:05 Order name: IV Saline Lock; Complete Time: 08:56 [facility] 04/02 08:05 Order name: Labs collected and sent; Complete Time: 08:56 [facility] 04/02 08:05 Order name: O2 Per Protocol; Complete Time: 08:15 [facility] 04/02 08:05 Order name: O2 Sat Monitoring; Complete Time: 08:15 [facility] 04/02 08:05 Order name: Orthostatic Blood Pressure; Complete Time: 09:45 [facility] Administered Medications: 09:05 Drug: NS 0.9% 1000 ml Route: IV; Rate: 1 bolus; Site: left antecubital; tr6 Disposition: 04/03 08:07 Co-signature as Attending Physician, Jose Martin Schultz MD I agree with the assessment and kdr plan of care. Disposition Summary: 04/02/21 10:49 Hospitalization Ordered Hospitalization Status: Observation [facility] Provider: Nasim Aaron Location: Telemetry/MedSurg (observation) jmm Condition: Stable jmm Problem: new jmm Symptoms: are unchanged [facility] Bed/Room Type: Standard [facility] Room Assignment: 208(04/02/21 18:57) tt3 Diagnosis - Syncope Near [facility] - Chest pain, unspecified [facility] Forms: - Medication Reconciliation Form jm - SBAR form [facility] Signatures: Dispatcher [employer] EDMS Jose Martin Schultz MD MD [facility] Nixon Allen PA PA [facility] Chalo Bueno tt3 Meggan Lemus, RN RN tr6 Corrections: (The following items were deleted from the chart) 04/02 08:09 08:07 Home Meds: IBS medication; tr6 tr6 09:00 08:14 CORONAVIRUS+MR.LAB.BRZ ordered. EDMS EDMS 09:01 08:14 Influenza Screen (A ordered. EDMS EDMS 18:57 10:49 [facility] tt3
[2021-04-02] MEDS ORDERED: ONDANSETRON 4 MG/2 ML VIAL IV PRN (11:48)
[2021-04-02] MEDS ORDERED: ACETAMINOPHEN 500 MG TAB PO PRN (11:48)
[2021-04-02] MEDS ORDERED: NA CHLORIDE 0.9% 1,000 ML IV SCH (12:00)
[2021-04-02] MEDS: NA CHLORIDE 0.9% 1,000 ML IV SCH ×2 (12:29→20:51)
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
--- NOTE | 2021-04-02 13:56 | RAD REPORT ---
EXAM DESCRIPTION: CT - Abdomen Pelvis W Contrast - 04/02/2021 1:41 pm CLINICAL HISTORY: leukocytosis, abd pain COMPARISON: March 27, 2021 TECHNIQUE: Computed axial tomography of the abdomen pelvis was obtained. 100 cc Isovue-300 was admin istered intravenously. Oral contrast was not requested which limits evaluation of bowel. All CT scans are performed using dose optimization technique as appropriate and may include automated exposure control or mA/KV adjustment according to patient size. FINDINGS: The liver, spleen, pancreas, adrenal and kidneys appear unremarkable. There is no evidence of diverticulitis. A moderate amount stool within the colon. Fluid within nondilated small bowel 3 centimeter left ovarian/paraovarian cyst without significant change Mild bilateral inguinal lymphadenopathy unchanged IMPRESSION: Moderate amount stool within the colon. Fluid within nondilated small bowel is a nonspecific finding but can be seen with an enteritis 3 centimeter left ovarian/paraovarian cyst without significant change. Follow-up ultrasound in 1 year recommended to assess stability Mild bilateral inguinal lymphadenopathy unchanged. This also can be reassessed on the subsequent ultr asound
--- NOTE | 2021-04-02 14:01 | RAD REPORT ---
EXAM DESCRIPTION: USCarotid Artery Bilateral04/02/2021 1:09 pm CLINICAL HISTORY: syncope COMPARISON: None FINDINGS: The velocity of the right internal carotid artery equals 8 cm/sec. The right ICA/CCA ratio 1. The velocity of the left internal carotid artery equals 97 cm/sec. The left ICA/CCA ratio 1. Mild plaque is present within the carotid arteries. The vertebral arteries demonstrate antegrade flow IMPRESSION: Mild plaque within the carotid arteries without evidence of a hemodynamically significan t stenosis NASCET criteria used. Mild 0-49% stenosis Moderate 50-69% stenosis Severe 70-99% stenosis
[2021-04-02] MEDS: ENOXAPARIN 40 MG/0.4 ML SQ SCH (15:00)
[2021-04-02] MEDS ORDERED: POLYETHYL GLY 3350 17 GM/DOSE PO PRN (15:02)
[2021-04-02 15:53] LABS: Thyroid Stimulating Hormone 4.22 uIU/mL (0.360-3.740)
[2021-04-02] MEDS: TRAMADOL HCL 50 MG TAB PO PRN (16:19)
[2021-04-02] MEDS ORDERED: ENOXAPARIN 40 MG/0.4 ML SQ ONE (16:23)
[2021-04-02] MEDS ORDERED: TRAMADOL HCL 50 MG TAB ONE (16:23)
[2021-04-02 16:48] VITALS: BMI 18.1
[2021-04-02] MEDS: METRONIDAZOLE 500mg IVPB 500 MG/100 ML BAG IV SCH (17:00)
[2021-04-02 18:06] LABS: Absolute Lymphocytes (CBC) 2.7 K/uL (0.7-4.9); Basophils % 0.4 % (0-1.3); Hematocrit 30.9 % (36.0-45.0); Lymphocytes % 15.4 % (15.3-44.8); MPV 8.9 fL (7.6-11.3); RBC Red Blood Cell Count 3.42 M/uL (3.86-4.86)
--- NOTE | 2021-04-02 18:23 | EKG ---
Test Date: 2021-04-02 Test Time: 07:50:26 Mica Sizer: TORIN MEASUREMENT RESULTS: Intervals: Rate: 68 NV: 112 QRSD: 74 QT: 404 QTc: 429 [place]: P: 77 NV: 112 QRS: 82 T: 64 INTERPRETIVE STATEMENTS: Normal sinus rhythm ST & T wave abnormality, consider anterior ischemia Abnormal ECG Compared to ECG 03/27/2021 18:38:28 Prolonged QT interval no longer present ST (T wave) deviation still present Possible ischemia still present Electronically Signed On 04-02-21 18:20:58 CDT by Serafin Noble
[2021-04-02] MEDS ORDERED: METRONIDAZOLE 500mg IVPB 500 MG/100 ML BAG IV ONE (18:34)
[2021-04-02] MEDS: CIPROFLOXACIN 400mg IV 400 MG/200 ML BAG IV SCH (20:39)
[2021-04-03 01:06] LABS: Urine Appearance CLEAR (Clear); Urine Bilirubin NEGATIVE (Negative); Urine Blood NEGATIVE (Negative); Urine Color YELLOW (Yellow); Urine Glucose NEGATIVE (Negative); Urine Protein NEGATIVE (Negative); Urine Specific Gravity 1.025 (1.005-1.030); Urine Urobilinogen 0.2 mg/dL (0.2-1.0); Urine pH 6.5 (5.0-7.0)
[2021-04-03] MEDS: TRAMADOL HCL 50 MG TAB PO PRN ×3 (01:06→22:19)
[2021-04-03] MEDS: METRONIDAZOLE 500mg IVPB 500 MG/100 ML BAG IV SCH ×3 (01:06→17:29)
[2021-04-03 01:18] LABS: Urine Microscopic Reflex NO UMIC
[2021-04-03] MEDS: NA CHLORIDE 0.9% 1,000 ML IV SCH ×3 (04:29→15:42)
[2021-04-03 05:52] LABS: Basophils % 0.4 % (0-1.3); Lymphocytes % 13.1 % (15.3-44.8); MPV 8.6 fL (7.6-11.3); RBC Red Blood Cell Count 3.18 M/uL (3.86-4.86)
[2021-04-03 06:01] LABS: BUN Blood Urea Nitrogen 12 mg/dL (7-18); Bicarbonate 27 mmol/L (21-32); Glucose Level 89 mg/dL (74-106); HDL Cholesterol 33 mg/dL (40-60); LDL Cholesterol, Calculated 63 (<130); Phosphorus 3.7 mg/dL (2.5-4.9); Potassium 3.8 mmol/L (3.5-5.1); Sodium Level 141 mmol/L (136-145)
[2021-04-03 06:02] LABS: C-Reactive Protein < 2.90 mg/L (<3.00)
[2021-04-03] MEDS ORDERED: NA CHLORIDE 0.9% 500 ML IV ONE ×2 (08:04→21:14)
[2021-04-03] MEDS ORDERED: POTASSIUM CL SA 10 MEQ TAB PO ONE (09:00)
[2021-04-03] MEDS: CIPROFLOXACIN 400mg IV 400 MG/200 ML BAG IV SCH ×2 (09:37→19:56)
[2021-04-03] MEDS: ENOXAPARIN 40 MG/0.4 ML SQ SCH (09:37)
[2021-04-03] MEDS ORDERED: BISACODYL 10 MG RECTAL SUPP PR ONE (12:53)
--- NOTE | 2021-04-03 14:20 | P.PN ---
Subjective Date of Service: 04/03/21 Primary Care Provider: Amelia Amaya NP Chief Complaint: chest pain, presyncope Subjective: No new changes (Feels slightly better today, pain has improved with medication. Blood pressure remains low, with some slight lightheadedness with ambulation. Only slightly responsive to fluids. No new complaints.) Review of Systems 10-point ROS is otherwise unremarkable Physical Examination - Vital Signs Temperature: 98.1 F Blood Pressure: 80/45 Pulse: 69 Respirations: 18 Pulse Ox (%): 97 - Studies Laboratory Data (last 24 hrs) 04/02/21 17:35: WBC 17.30 H, Hgb 10.4 L, Hct 30.9 L, Plt Count 140 L 04/02/21 14:50: Troponin I < 0.02 Assessment & Plan Physician Review Additional Text: Physical exam GEN: Alert, oriented, NAD HEENT: Normal conjunctiva, sclera anicteric CV: Regular rate and rhythm, no edema Pulm: Nonlabored respiration on room air ABD: Soft, moderate diffuse tenderness to palpation MSK: No joint tenderness Integumentary: No rashes / lesions Neuro: Normal speech, normal affect Problem list chest pain, palpitations fatigue, weakness likely secondary to hypotension vs possible underlying arrhythmia leukocytosis of unknown etiology unintentional weight loss Hypotension Normocytic anemia h/o IBS h/o RA Chest pain/palpitationstroponin negative, echo normal, cardiology consulted and do not feel this is cardiac etiology. No further work-up recommended Unclear etiology of all of patient's other symptoms. Most seem to be acute worsening of chronic symptoms Fatigue/weakness, hypotension, back pain, abdominal pain have all been acutely worse in the last week Also over the last week, patient has had bilateral leg cramping pain in thighs CRP, ESR negative CT abdomen/pelvis with no significant signs of infection, some mild edema that could possibly be a colitis Patient was empirically started on ciprofloxacin and Flagyl on 04/02 Mild improvement in leukocytosis Chronic anemia, unclear etiology Patient does not appear septic, do not suspect this is what is causing her hypotension Unclear etiology for hypotension, although patient does not have electrolyte abnormalities, she may have adrenal insufficiency, given history of autoimmune disease We will give bolus today, continue IV fluid, start midodrine if BP does not respond much to IV fluids Obtain cortisol, ACTH, renin, aldosterone in a.m. If patient acutely decompensates/worsens, will consider initiating steroids, otherwise will await to have accurate test results in the a.m. Also possibility of a leukemia/lymphoma, blood smear sent to pathology dispo: Anticipate DC home in ~2 days Time Spent Managing Pts Care (In Minutes): 40
[2021-04-03] MEDS: MIDODRINE HCL 5 MG TABLET PO SCH ×2 (15:41→19:56)
[2021-04-03] MEDS: DOCUSATE NA 100 MG CAP PO SCH (19:56)
[2021-04-03] MEDS ORDERED: GABAPENTIN 300 MG CAP ONE (22:30)
[2021-04-04] MEDS: METRONIDAZOLE 500mg IVPB 500 MG/100 ML BAG IV SCH ×3 (00:47→16:40)
[2021-04-04] MEDS: NA CHLORIDE 0.9% 1,000 ML IV SCH ×3 (05:06→20:29)
--- NOTE | 2021-04-04 05:54 | P.PN ---
Subjective Date of Service: 04/04/21 Primary Care Provider: Amelia Amaya NP Chief Complaint: chest pain, presyncope Subjective: Improving (feeling better today - not as lightheaded when she gets up to bathroom. continues with back pain and thigh pain. abdominal pain unch anged, no nausea/vomiting. blood pressure remains low, MAPS: ~60 but less symptomatic. afebrile, no dysuria, no diarrhea) Review of Systems 10-point ROS is otherwise unremarkable Physical Examination - Vital Signs Temperature: 98.2 F Blood Pressure: 83/49 Pulse: 74 Respirations: 16 Pulse Ox (%): 96 Assessment & Plan Physician Review Additional Text: Physical exam GEN: Alert, oriented, NAD HEENT: Normal conjunctiva, sclera anicteric, PERRL, EOMI CV: Regular rate and rhythm, no edema Pulm: Nonlabored respiration on room air, clear to auscultation bilaterally ABD: Soft, mild-mod diffuse tenderness to palpation MSK: No joint tenderness Integumentary: No rashes / lesions Neuro: Normal speech, normal affect, moves all extremities, 5/5 strength, CN II- XII grossly intact Problem list chest pain, palpitations fatigue, weakness likely secondary to hypotension vs possible underlying arrhythmia leukocytosis of unknown etiology unintentional weight loss Hypotension Normocytic anemia h/o IBS h/o RA Chest pain/palpitationstroponin negative, echo normal, cardiology consulted and do not feel this is cardiac etiology. No further work-up recommended Unclear etiology of all of patient's other symptoms. Most seem to be acute worsening of chronic symptoms Fatigue/weakness, hypotension, back pain, abdominal pain have all been acutely worse in the last week Also over the last week, patient has had bilateral leg cramping pain in thighs CRP, ESR, CPK WNL CT abdomen/pelvis with no significant signs of infection, nonspecific findings suggestive of maybe colitis Patient was empirically started on ciprofloxacin and Flagyl on 04/02 Mild improvement in leukocytosis, from 20k to 15k Chronic anemia, unclear etiology, normocytic Patient does not appear septic Unclear etiology for hypotension, although patient does not have electrolyte abnormalities, she may have adrenal insufficiency, given history of autoimmune disease hypotension minimally responds to IV fluid. I/O's have not been recorded, so unclear of fluid balance Midodrine started evening of 04/03, increased to 7.5mg TID on 04/04. Patient reported improvement of lightheadedness, BP remained low MAPS: ~60s AM cortisol 04/04: borderline low-normal. ACTH/renin/aldosterone pending GLADIS pending Also possibility of a leukemia/lymphoma, blood smear sent to pathology CBC with leukocytosis, neutrophilia, +toxic granulation, may be infectious. procal mildly elevated cultures without growth patient does not appear to be in shock, no signs of end-organ damage may have autonomic dysfunction L ovarian cyst enlarged since last CT ~1 week ago, will obtain transvaginal U/S to evaluate dispo: Anticipate DC home in ~2 days Time Spent Managing Pts Care (In Minutes): 45
[2021-04-04 06:20] LABS: Absolute Lymphocytes (CBC) 1.9 K/uL (0.7-4.9); Basophils % 0.6 % (0-1.3); Hematocrit 28.2 % (36.0-45.0); Lymphocytes % 12.7 % (15.3-44.8); MPV 8.4 fL (7.6-11.3)
[2021-04-04] MEDS: MIDODRINE HCL 5 MG TABLET PO SCH ×3 (06:25→21:11)
[2021-04-04 06:38] LABS: BUN Blood Urea Nitrogen 9 mg/dL (7-18); Bicarbonate 26 mmol/L (21-32); Glucose Level 91 mg/dL (74-106); Potassium 3.9 mmol/L (3.5-5.1); Sodium Level 140 mmol/L (136-145)
--- NOTE | 2021-04-04 08:01 | CON ---
Date of Consultation: 04/02/2021 History Of Present Illness: Ms. Jean is a 60-year-old woman, who just left the hospital AMA not long ago after she was here for chest pain. She comes back with presyncope, chest pain, leg pain, ba ck pain, and increased heart rate. Most significantly, she has lost about 40 pounds plus over the la st few months. Denies any nausea, vomiting, diaphoresis, PND, orthopnea, pedal edema, palpitation, o r syncope. Past Medical History: Includes irritable bowel syndrome. Allergies: NONE. Review of Systems: Negative. Social History: Negative. Medications: Include Linzess and Pepcid. Physical Examination: General: Ms. Jean appears much older than her stated age. Vital Signs: Stable, afebrile. HEENT: Negative. Neck: Supple with no bruit. Chest: Clear to auscultation and percussion. Cardiac: Revealed a regular rhythm and rate. No murmurs, gallops, or rubs. Abdomen: Benign. Extremities: Revealed no clubbing, cyanosis, or edema. Diagnostic Data: She had a white count of 20,000. Chest x-ray was normal. Carotid Doppler was norm al. CT of her head was normal. Abdominal CT showed possible enteritis. Impression And Plan: 1.Atypical chest pain, noncardiac, gastric in nature, possibly related to enteritis. 2.Presyncope may be secondary to dehydration. She has an elevated white count. 3.Leg pain, back pain, and tachycardia, probably secondary to significant rapid weight loss. I am c oncerned that Mrs. Jean may have some auto immunodeficiency or rheumatological illness. The case was discussed with Dr. Aaron. Echocardiogram which was done was perfectly normal. Again, this is n oncardiac. I would hydrate her, treat her with antibiotics, possibly Flagyl for her enteritis, and I think she needs to have a rheumatological workup, maybe get an GLADIS, rheumatoid factor, and some comp lement levels. I will continue to follow her on an as-needed basis. NB/MODL Voice ID: [id number] Report ID: [id number]
[2021-04-04] MEDS: ENOXAPARIN 40 MG/0.4 ML SQ SCH (08:16)
[2021-04-04] MEDS: DOCUSATE NA 100 MG CAP PO SCH ×2 (08:17→20:47)
[2021-04-04] MEDS: CIPROFLOXACIN 400mg IV 400 MG/200 ML BAG IV SCH ×2 (08:32→20:47)
[2021-04-04] MEDS: KETOROLAC 30 MG/ML INJ IV PRN ×2 (08:35→20:50)
[2021-04-04] MEDS ORDERED: POTASSIUM CL SA 10 MEQ TAB PO ONE (09:00)
--- NOTE | 2021-04-04 16:15 | RAD REPORT ---
EXAM DESCRIPTION: US - Transvaginal Study Probe - 04/04/2021 3:49 pm CLINICAL HISTORY: Left ovarian cyst COMPARISON: CT April 02, 2021 FINDINGS: Examination is somewhat limited as the patient experience pain with the vaginal probe so t he exam was shortened. Hysterectomy Neither ovary clearly seen secondary to overlying bowel gas. Right and left adnexa appear unremarkable. No ascites IMPRESSION: Hysterectomy Patient's previously described a small left ovarian/paraovarian cyst was not visualized on this exami nation likely secondary to technical factors. It probably is benign. Follow up ultrasound in 1 year r ecommended
[2021-04-04] MEDS ORDERED: BISACODYL 10 MG RECTAL SUPP PR ONE (16:37)
--- NOTE | 2021-04-04 17:49 | P.CNS ---
Date of Consult: 04/04/21 Reason for Consult: Hypotension Primary Care Provider: Amelia Amaya NP Chief Complaint: chest pain, presyncope History of Present Illness: A 60 y/o F with no significant PMHx IBS who presented with substernal chest pain and worsening presyncope x 1 week. pt stated she has borderline BP , but recently becoming dizzy with near syncope, she also had unintentional wt loss of 50lbs over 1 year period , W/U including chest, abdomen/pelvic CT. mammogram was non conclusive , labs significant for WBC of 20K Review of Systems: Head and Neck: weak tires, WT loss GI: denied nausea or diarrhea. : No polyuria. No dysuria. No hematuria. 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 Cardiovascular: denied chest pain or palpitation Endocrine: No polydipsia. Skin: No rash. Neuro: denied neuropathy. Musculoskeletal: denied joint pain Physical exam general: AAOX3, NAD , thin Neck; Supple, No elevated JVD chest CTAB, no rlaes or wheezes hear: RRR, normal S1,2 no murmur or rub Chest: CTAB, no rales or wheezes Abdomen: Soft , Nt Extremities No edema or ulcer A/P Symptomatic hypotension unclear etiology morning cortisol 8.0, TSH wnl plan for Cosyntropin test Leuckocytosis need to R/O malignancy will send for flocytomerty and HIV as pt have inguinal LAP hematology consult unintentional Wt loss pt lost Allergies No Known Allergies Allergy (Verified 04/02/21 20:34) Home Medications: Famotidine [Pepcid] 20 mg PO BEDTIME 04/02/21 Linaclotide [Linzess] 1 cap PO DAILY 04/02/21 - Past Medical/Surgical History -: IBS -: neck surgery -: partial hysterectomy -: Psychosocial/ Personal History: lives with - Family History Mother Medical History: Cancer (colon) Brother Medical History: Cancer (colon) Sister Medical History: Heart disease, Diabetes, Cancer (cervical) - Social History Smoking Status: Current every day smoker Alcohol use: No CD- Drugs: No Caffeine use: Yes Physical Examination Temp Pulse Resp BP Pulse Ox 99.3 F 64 18 90/50 L 98 04/04/21 16:00 04/04/21 16:00 04/04/21 16:00 04/04/21 16:00 04/04/21 16:00
[2021-04-05] MEDS: METRONIDAZOLE 500mg IVPB 500 MG/100 ML BAG IV SCH ×3 (01:29→16:21)
[2021-04-05] MEDS: NA CHLORIDE 0.9% 1,000 ML IV SCH ×4 (01:29→22:48)
[2021-04-05] MEDS ORDERED: COSYNTROPIN 0.25 MG VIAL IV SCH (06:00)
[2021-04-05] MEDS: MIDODRINE HCL 5 MG TABLET PO SCH ×3 (06:00→21:35)
--- NOTE | 2021-04-05 07:23 | P.PN ---
Subjective Date of Service: 04/05/21 Primary Care Provider: Amelia Amaya NP Chief Complaint: chest pain, presyncope Subjective: Improving (no longer having lightheadedness when ambulating. White count increasing, still with abdominal pain, unable to tolerate transvaginal ultrasound due to pain. Now states she has been having dyspareunia for the last year) Review of Systems 10-point ROS is otherwise unremarkable Physical Examination - Vital Signs Temperature: 97.6 F Blood Pressure: 104/55 Pulse: 60 Respirations: 16 Pulse Ox (%): 99 Assessment & Plan Physician Review Additional Text: Physical exam GEN: Alert, oriented HEENT: Normal conjunctiva, sclera anicteric CV: Regular rate and rhythm, no edema Pulm: Nonlabored respiration on room air, clear to auscultation bilaterally ABD: Soft, mild-mod diffuse tenderness to palpation, moderate suprapubic tenderness MSK: No joint tenderness Integumentary: No rashes / lesions Neuro: Normal speech, normal affect, moves all extremities, 5/5 strength, CN II- XII grossly intact Problem list chest pain, palpitations fatigue, weakness likely secondary to hypotension vs possible underlying arrhythmia leukocytosis of unknown etiology unintentional weight loss (~40lb in 1yr) Hypotension Normocytic anemia Dyspareunia h/o irritable bowel syndrome h/o rheumatoid arthritis Chest pain/palpitationstroponin negative, echo normal, cardiology consulted and do not feel this is cardiac etiology. No further work-up recommended Unclear etiology of all of patient's other symptoms. Most seem to be acute worsening of chronic symptoms (chronic over last year) Fatigue/weakness, hypotension, back pain, abdominal pain have all been acutely worse in the last week Also over the last week, patient has had bilateral leg cramping pain in thighs CRP, ESR, CPK WNL CT abdomen/pelvis with no significant signs of infection, nonspecific findings suggestive of maybe colitis Patient was empirically started on ciprofloxacin and Flagyl on 04/02 Mild improvement in leukocytosis, from 20k to 15k, back up to 18k Chronic anemia, unclear etiology, normocytic Patient does not appear septic Unclear etiology for hypotension, although patient does not have electrolyte abnormalities, she may have adrenal insufficiency, given history of autoimmune disease hypotension minimally responds to IV fluid. I/O's have not been recorded, so unclear of fluid balance Midodrine started evening of 04/03, increased to 7.5mg TID on 04/04. Patient reported improvement of lightheadedness, BP remained low MAPS: ~60s AM cortisol 04/04: borderline low-normal. ACTH/renin/aldosterone pending. ACTH stimulation test ordered for this morning. GLADIS pending Also possibility of a leukemia/lymphoma, blood smear sent to pathology - pending. Heme/Onc consulted - felt unlikely to be malignancy, but if too be sure, would need lymph node biopsy CBC with leukocytosis, neutrophilia, +toxic granulation, may be infectious. procal mildly elevated. consult ID cultures without growth patient does not appear to be in shock, no signs of end-organ damage may have autonomic dysfunction L ovarian cyst enlarged since last CT ~1 week ago Transvaginal ultrasound 04/04: Inconclusive, patient unable to tolerate secondary to pain dispo: Anticipate DC home in ~1-2 days Time Spent Managing Pts Care (In Minutes): 35
--- NOTE | 2021-04-05 08:36 | ECHO ---
HEIGHT: 5 ft 2 in WEIGHT: 99 lb 6.503 oz DATE OF STUDY: 04/02/[address]: Leonor Marquez 2-DIMENSIONAL: YES M.MODE: YES DOPPLER: YES COLOR FLOW: YES TDS: NO PORTABLE: NO DEFINITY: NO BUBBLE STUDY: NO DIAGNOSIS: CHEST PAIN, PRESYNCOPE CARDIAC HISTORY: CATHERIZATION: NO SURGERY: NO PROSTHETIC VALVE: NO PACEMAKER: NO MEASUREMENTS (cm) DIASTOLIC (NORMALS) SYSTOLIC (NORMALS) IVSd 0.7 (0.6-1.2) LA Diam 2.4 (1.9-4.0) LVEF 58% LVIDd 4.5 (3.5-5.7) LVIDs 3.2 (2.0-3.5) %FS 30% LVPWd 0.9 (0.6-1.2) Ao Diam 2.9 (2.0-3.7) 2 DIMENSIONAL ASSESSMENT: RIGHT ATRIUM: NORMAL LEFT ATRIUM: NORMAL RIGHT VENTRICLE: NORMAL LEFT VENTRICLE: NORMAL TRICUSPID VALVE: NORMAL MITRAL VALVE: NORMAL PULMONIC VALVE: NORMAL AORTIC VALVE: NORMAL PERICARDIAL EFFUSION: NONE AORTIC ROOT: NORMAL LEFT VENTRICULAR WALL MOTION: NORMAL DOPPLER/COLOR FLOW: NORMAL COMMENTS: NORMAL 2D ECHOCARDIOGRAM WITH DOPPLER. NO WALL MOTION ABNORMALITY. NO EFFUSION. TECHNOLOGIST: Boyd PEREZ
[2021-04-05] MEDS: DOCUSATE NA 100 MG CAP PO SCH ×2 (09:00→21:35)
[2021-04-05] MEDS: ENOXAPARIN 40 MG/0.4 ML SQ SCH (09:00)
[2021-04-05 09:12] LABS: BUN Blood Urea Nitrogen 8 mg/dL (7-18); Bicarbonate 26 mmol/L (21-32); Glucose Level 97 mg/dL (74-106); Sodium Level 141 mmol/L (136-145)
[2021-04-05 09:18] LABS: Absolute Lymphocytes (CBC) 1.3 K/uL (0.7-4.9); Basophils % 0.3 % (0-1.3); Hematocrit 30.2 % (36.0-45.0); Lymphocytes % 7.4 % (15.3-44.8); MPV 8.8 fL (7.6-11.3); RBC Red Blood Cell Count 3.33 M/uL (3.86-4.86)
[2021-04-05] MEDS: CIPROFLOXACIN 400mg IV 400 MG/200 ML BAG IV SCH ×2 (11:12→21:35)
--- NOTE | 2021-04-05 13:34 | P.CNS ---
Date of Consult: 04/05/21 Primary Care Provider: Amelia Amaya NP Chief Complaint: chest pain, presyncope History of Present Illness: Patient is a 52-year-old female past medical history of IBS who presented to the emergency department due to substernal chest pain and worsening presyncope. Patient also has unintentional weight loss, night sweats, and leukocytosis of unknown origin. Patient empirically placed on Flagyl and Cipro. CT chest/abdomen/pelvis showed left ovarian mass and lymphadenopathy to groin area. Patient states she had these findings about a year ago when she had a colonoscopy as well. Patient currently complains of nausea of vomiting. Patient denies diarrhea, shortness breath, chest pain. Patient also reports tenderness to bilateral abdominal lower quadrants. Allergies No Known Allergies Allergy (Verified 04/02/21 20:34) Home Medications: Famotidine [Pepcid] 20 mg PO BEDTIME 04/02/21 Linaclotide [Linzess] 1 cap PO DAILY 04/02/21 - Past Medical/Surgical History -: IBS -: neck surgery -: partial hysterectomy -: Psychosocial/ Personal History: lives with - Family History Mother Medical History: Cancer (colon) Brother Medical History: Cancer (colon) Sister Medical History: Heart disease, Diabetes, Cancer (cervical) - Social History Smoking Status: Current every day smoker Alcohol use: No CD- Drugs: No Caffeine use: Yes Review of Systems 10-point ROS is otherwise unremarkable Physical Examination Temp Pulse Resp BP Pulse Ox 98.1 F 71 18 108/58 L 96 04/05/21 08:00 04/05/21 08:00 04/05/21 08:00 04/05/21 08:00 04/05/21 08:00 General: Alert, In no apparent distress, Cachectic HEENT: Atraumatic, Normocephalic Neck: Supple, 2+ carotid pulse no bruit Respiratory: Clear to auscultation bilaterally, Normal air movement Cardiovascular: No edema, Normal pulses Gastrointestinal: Normal bowel sounds, Soft and benign Musculoskeletal: No clubbing, No contractures, No erythema Integumentary: No rashes, No breakdown, No significant lesion Conclusions/Impression: Assessment/plan Leukocytosis with absolute neutrophilia WBC has been increased since admission. Differential shows leukocytosis with absolute neutrophilia faring reactive. Patient does have history of rheumatoid arthritis and irritable bowel disease. Leukocytosis could be due to autoimmune causes. CT chest/abdomen/pelvis showed left ovarian mass with lymphadenopathy 2 groin area. Recommend obtaining lymph node biopsy. Recommend considering Flagyl and ciprofloxacin for possible inter abdominal or pelvic infection. Rheumatoid arthritis, irritable bowel disease, anemia, thrombocytopenia Medical management per primary team Plan of care discussed with Dr. Mark Thank you for consultation
[2021-04-05 16:19] LABS: Platelet Estimate DECR; White Blood Cell Scan OK (OK)
[2021-04-05 16:20] LABS: Anisocytosis 1+; Blood Morphology Comment NOTED (NOT SEEN); Poikilocytosis 2+
[2021-04-05] MEDS: KETOROLAC 30 MG/ML INJ IV PRN (21:37)
[2021-04-06] MEDS: METRONIDAZOLE 500mg IVPB 500 MG/100 ML BAG IV SCH ×3 (01:03→16:56)
--- NOTE | 2021-04-06 03:05 | PN ---
Date of Progress Note: 04/05/2021 Chief Complaint: Syncope. Reason For Consultation: Hypotension. History Of Present Illness: The patient is a 60-year-old female with significant past medical history of IBS. She presented with substernal chest pain and worsening of presyncope for 1 week. The patient stated she has borderline hypertension. She recently became dizzy, near syncope. She had unintentional weight loss about 50 pounds of the last year. Workup includes chest x-ray, abdominal pelvic CT scan, mammogram, and was nonconclusive. Lab work was significant for white blood cell up to 20,000. Review of Systems: Patient denies fever, chills. She is although complaining of generalized weakness and dizziness. Physical Examination: Lungs: Clear to auscultation bilaterally. Heart: S1 and S2. Abdomen: Soft, benign. Extremities: Some edema present in both legs. Impression And Plan: Hypotension, chronic blood pressure is fluctuating. The patient will have workup done to rule out renal insufficiency. A.m. cortisol level was 8, TSH was within normal. Plan is to proceed with cosyntropin test. Patient was found to have severe leukocytosis may need to be ruled out for malignancy. Pending Infectious Disease workup and consultation with Infectious Disease was requested. Patient will continue midodrine for blood pressure support. Pending workup, adrenal insufficiency. Patient may need to be evaluated by Cardiology to rule out pericardial effusion. She needs also workup for malignancy and unintentional weight loss. Patient was experiencing atypical chest pain, which is likely noncardiac, but she is undergoing cardiac workup to rule out coronary artery disease. Echocardiogram was done and was normal, there is no pericardial effusion. Patient will continue IV antibiotics , and she needs to be evaluated for colitis and enteritis. EB/MODL Voice ID: [id number] Report ID: [id number] DONIS
[2021-04-06] MEDS: NA CHLORIDE 0.9% 1,000 ML IV SCH ×5 (04:29→20:29)
[2021-04-06] MEDS: MIDODRINE HCL 5 MG TABLET PO SCH ×3 (05:18→21:48)
[2021-04-06 06:07] LABS: Absolute Lymphocytes (CBC) 2.2 K/uL (0.7-4.9); Basophils % 0.2 % (0-1.3); Hematocrit 29.1 % (36.0-45.0); Lymphocytes % 12.4 % (15.3-44.8); MPV 8.8 fL (7.6-11.3); RBC Red Blood Cell Count 3.21 M/uL (3.86-4.86)
[2021-04-06 06:24] LABS: ALT/SGPT 15 U/L (12-78); AST/SGOT 18 U/L (15-37); Albumin 2.8 g/dL (3.4-5.0); Alkaline Phosphatase 65 U/L (45-117); BUN Blood Urea Nitrogen 11 mg/dL (7-18); Bicarbonate 24 mmol/L (21-32); Bilirubin Total 0.2 mg/dL (0.2-1.0); Glucose Level 102 mg/dL (74-106); Magnesium 1.7 mg/dL (1.8-2.4); Phosphorus 2.9 mg/dL (2.5-4.9); Potassium 3.4 mmol/L (3.5-5.1); Protein, Total 5.6 g/dL (6.4-8.2); Sodium Level 143 mmol/L (136-145)
--- NOTE | 2021-04-06 07:15 | P.PN ---
Subjective Date of Service: 04/06/21 Primary Care Provider: Amelia Amaya NP Chief Complaint: chest pain, presyncope Subjective: Other (She underwent lymph node biopsy today.) Physical Examination - Vital Signs Temperature: 97.2 F Blood Pressure: 123/59 Pulse: 64 Respirations: 19 Pulse Ox (%): 98 - Physical Exam General: In no apparent distress HEENT: Atraumatic, Normocephalic Neck: Supple, JVD not distended Respiratory: Other (symmetric chest expansion) Cardiovascular: No rubs, No murmurs Gastrointestinal: Soft and benign, No guarding Musculoskeletal: No clubbing Integumentary: No warmth Neurological: Normal speech, Normal tone Urinary: Other (no bladder distention) Assessment And Plan - Plan # Chronic hypotension unclear etiology, possible relative adrenal insufficiency vs autonomic neuropathy BNP wnl; Trop neg; TTE unremarkable; Serum B12 wnl; TSH not sig elevated Cosyntropin stimulation test wnl--> no evidence of primary adrenal insufficiency; relative adrenal insufficiency possible; f/u serum DHEAS & ACTH F/u RPR, GLADIS, SSA, SSB No serum protein gap; f/u random UPCR to assess for urine protein gap Continue midodrine same d every 8 hours [place] dietary salt intake She was borderline orthostatic today. Recheck orthostatic vitals tomorrow. If orthostatic, may add low dose Florinef po daily. # Presyncope Likely 2/2 low BP monitoring specialist no events May need 30-day event monitor as outpt # Bilateral inguinal lymphadenopathy S/p lymph node biopsy on 04/06, f/u result # IBS Per primary team # Chronic back pain Per primary team
[2021-04-06] MEDS ORDERED: POTASSIUM CL 40 MEQ in NA CHLORIDE 0.9% 500 ML IV SCH (08:00)
[2021-04-06] MEDS: DOCUSATE NA 100 MG CAP PO SCH ×2 (08:01→21:48)
[2021-04-06] MEDS: ENOXAPARIN 40 MG/0.4 ML SQ SCH (08:02)
[2021-04-06] MEDS: KETOROLAC 30 MG/ML INJ IV PRN ×2 (09:15→21:48)
[2021-04-06] MEDS: CIPROFLOXACIN 400mg IV 400 MG/200 ML BAG IV SCH ×2 (13:15→21:48)
--- NOTE | 2021-04-06 14:42 | P.PN ---
Subjective Date of Service: 04/06/21 Primary Care Provider: Amelia Amaya NP Chief Complaint: chest pain, presyncope No new changes from yesterday. No fever. Physical Examination - Vital Signs Temperature: 98.7 F Blood Pressure: 117/66 Pulse: 69 Respirations: 18 Pulse Ox (%): 100 Assessment And Plan Physician Review Additional Text: Physical exam GEN: Alert, oriented HEENT: Normal conjunctiva, sclera anicteric CV: Regular rate and rhythm, no edema Pulm: Nonlabored respiration on room air, clear to auscultation bilaterally ABD: Soft, mild-mod diffuse tenderness to palpation, moderate suprapubic tenderness MSK: No joint tenderness Integumentary: No rashes / lesions Neuro: Normal speech, normal affect, moves all extremities, 5/5 strength, CN II- XII grossly intact Problem list chest pain, palpitations fatigue, weakness likely secondary to hypotension vs possible underlying arrhythmia leukocytosis of unknown etiology unintentional weight loss (~40lb in 1yr) Hypotension Normocytic anemia Dyspareunia h/o irritable bowel syndrome h/o rheumatoid arthritis Chest pain/palpitationstroponin negative, echo normal, cardiology consulted and do not feel this is cardiac etiology. No further work-up recommended Unclear etiology of all of patient's other symptoms. Fatigue/weakness, hypotension, back pain, abdominal pain have all been acutely worse in the last week Also over the last week, patient has had bilateral leg cramping pain in thighs CRP, ESR, CPK WNL CT abdomen/pelvis with no significant signs of infection, nonspecific findings suggestive of maybe colitis Patient was empirically started on ciprofloxacin and Flagyl on 04/02 Mild improvement in leukocytosis, from 20k to 15k, back up to 18k Chronic anemia, unclear etiology, normocytic. Peripheral blood smear is unremarkable. Patient does not appear septic Unclear etiology for hypotension, although patient does not have electrolyte abnormalities, she may have adrenal insufficiency, given history of autoimmune disease. Cosyntropin test result is pending. hypotension minimally responds to IV fluid. I/O's have not been recorded, so unclear of fluid balance Midodrine started evening of 04/03, increased to 7.5mg TID on 04/04. Blood pre ssure readings improved with midodrine. MAPS: ~60s AM cortisol 04/04: borderline low-normal. ACTH/renin/aldosterone pending. ACTH stimulation test is pending. GLADIS pending Also possibility of a leukemia/lymphoma, blood smear sent to pathology - unremarkable. Heme/Onc consulted - felt unlikely to be malignancy, but if too be sure, would need lymph node biopsy. Infectious disease is following. General surgery-Dr. Maldonado consulted for lymph node biopsy. cultures without growth Autonomic dysfunction is a possibility L ovarian cyst enlarged since last CT ~1 week ago Transvaginal ultrasound 04/04: Inconclusive, patient unable to tolerate secondary to pain Patient seen by gynecology-Dr. Liz. No gynecological pathology noted on examination.
--- NOTE | 2021-04-06 15:12 | PREOPCON ---
Date of Consultation: 04/06/2021 Reason: Lymphadenopathy. History Of Present Illness: The patient is a 60-year-old female, who was admitted on the with c hest pain and syncope with dizziness. The patient upon standing lost consciousness and brought to [facility] emergency room. A week prior, she left AMA and she was supposed to follow up with her PCP which [facility] did not. Her symptoms were worsening and so she came back to the emergency room. They increased i n frequency, occurring 3to 4 times a day on admission and lasting for 5 to 20 minutes associated with heart palpitations and lightheadedness. The patient has had weight loss of approximately 35 to 40 p ounds over the last year. She did have a colonoscopy in August in which still she had a precancero us polyp and needed a followup colonoscopy in 6 months which she has not had done yet. On admission, her lactate was 1.2. Procal was 0.19. White count was 20.1. She had some urinary urgency, but no dysuria or hematuria. She did have an episode of vomiting prior to admission and she has had chronic abdominal pain. Denies any shortness of breath, cough, sore throat, runny nose, cough, chills, feve r currently it. Review of Systems: Otherwise unremarkable. Past Medical History: Significant for IBS. Past Surgical History: Significant for neck surgery, partial hysterectomy, . Allergies: NONE. Social History: The patient does smoke every day. Has been counseled. Does not drink alcohol. Family History: Significant for colon cancer in the brother and mother. Sister with heart disease, diabetes and cervical cancer. Physical Examination: Vital Signs: Currently stable. She is afebrile, but she is on medication to keep her blood pressure up. General: She is awake, alert, and oriented x3. Head and neck: Cranial nerves 2 through 12 are grossly within normal limits. No neck masses. No JV D. Throat clear. Neck is supple. Chest: Clear. Heart: S1, S2. Abdomen: Soft, nondistended, nontender. Positive bowel sounds. Extremities: Neurovascularly intact. Neuro: Nonfocal. LYMPH NODES: Groin, axilla and neck exam revealed enlarged lymph nodes, right groin greater than lef t groin, approximately a 2 cm lymph node in the right groin that I can feel underneath the skin and i n the left axilla, there is an approximately a 2.5 cm enlarged lymph node. There are multiple smalle r lymph nodes in both areas. Laboratory Data: White count was 20,100 on admission, today 17,000.9. H and H 9.7 and 29.1. Platel ets are 134, there is a left shift. INR is 1.08. Laboratory data reviewed. Albumin is low, 2.8. U A is negative. Her CA-125 is pending. COVID is negative. CT reviewed with the radiologist, mara dugan she has some fluid filled small bowel and also some enlarged lymph nodes, right groin greater th an left and left axilla greater than right. The axillary lymph nodes were evaluated on the CT dissec tion done about a week prior to admission. She had an echo which was negative. Also had carotid ult rasound which shows mild plaque within the carotid artery without evidence of hemodynamically signifi cant stenosis. On the CAT scan of the abdomen and pelvis, she was also noted to have a left ovarian or paraovarian cyst and Dr. Liz and Dr. Tinsley have evaluated the patient as well. Assessment: A 60-year-old female with generalized lymphadenopathy, hypotension, weight loss, etiolog y unclear. Discussed the case with Dr. Liz as well as Dr. Tinsley. We will proceed with x-ray, ly mph node biopsy and we will get cultures done on the lymph node as well to see if we can determine th e cause of the patient's symptomatology. We will follow the patient while in the hospital. The patie nt understands the risks, benefits, and alternatives and agrees to procedure. Continue supportive ca re per the medical team for the time being and I agree with empiric antibiotic usage as the patient could have some enteritis based on CT findings. /MODL Voice ID: [id number] Report ID: [id number]
[2021-04-06] MEDS ORDERED: MIDAZOLAM HCL 2 MG/2 ML INJ ONE (15:29)
[2021-04-06] MEDS ORDERED: FENTANYL CITR 100 MCG/2 ML ONE (15:35)
[2021-04-06] MEDS ORDERED: LIDOCAINE 1% MPF 5 ML VIAL ONE (15:35)
[2021-04-06] MEDS ORDERED: propofoL 200 MG/20 ML VIAL IV ONE (15:35)
[2021-04-06] MEDS ORDERED: KETOROLAC 30 MG/ML INJ ONE (15:53)
[2021-04-06] MEDS ORDERED: dexAMETHasone 10 MG/ML VIAL ONE (15:53)
--- NOTE | 2021-04-06 15:53 | P.OP ---
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
[2021-04-06] MEDS ORDERED: ONDANSETRON 4 MG/2 ML VIAL ONE (15:59)
[2021-04-06] MEDS ORDERED: Mastisol Adhesive Liq ONE (16:11)
[2021-04-06] MEDS ORDERED: MORPHINE 4 MG/ML SYR ONE (16:48)
[2021-04-06] MEDS: HYDROCODONE/APAP 7.5/325 MG TAB PO PRN (19:47)
[2021-04-07 00:47] LABS: RPR (Rapid Plasma Reagin) NON-REACT (NON-REACT)
--- NOTE | 2021-04-07 01:13 | OP ---
Date of Procedure: 04/06/2021 Surgeon: Jasen Maldonado MD [employer] D[employer]: None. Preoperative Diagnosis: Lymphadenopathy. Postoperative Diagnosis: Lymphadenopathy. Procedure: Excision of left axillary lymph nodes x2. Estimated Blood Loss: Minimal. Specimen: Lymph nodes x2. Findings: Enlarged lymph nodes. Please note, the lymph nodes were sent for mycobacteria and fungus, culture and sensitivity as well as pathology. Anesthesia: General. Complications: None. Disposition: The patient tolerated the procedure in stable condition and taken to recovery in good g eneral condition. Operative Note: The patient was brought to the OR and placed in supine position. General anesthesia was begun. Patient was prepped and draped in the usual sterile fashion. Marcaine 0.5% was infiltra elsie locally. 15-blade was used to make a 3 cm incision and the left axillary subcutaneous tissue div ided, and deep to the subcutaneous tissue, axillary fat pad identified. In the axillary region, 2 la rge lymph nodes identified next to each other and vascular clips were used as needed and the both axi llary lymph nodes excised, sent to Pathology, and appropriately labeled and then wound irrigated, ble eding controlled with cautery and then 3-0 chromic used to approximate the subcutaneous tissue and cl ose the skin. Sterile dressing applied. The patient was awakened and taken to Recovery in good general condition. /MODL Voice ID: [id number] Report ID: [id number]
[2021-04-07] MEDS: METRONIDAZOLE 500mg IVPB 500 MG/100 ML BAG IV SCH ×4 (01:15→17:00)
[2021-04-07] MEDS: NA CHLORIDE 0.9% 1,000 ML IV SCH ×2 (05:53→14:24)
[2021-04-07] MEDS: MIDODRINE HCL 5 MG TABLET PO SCH ×3 (05:53→22:00)
[2021-04-07 06:12] LABS: Absolute Lymphocytes (CBC) 2.3 K/uL (0.7-4.9); Basophils % 0.5 % (0-1.3); Hematocrit 28.8 % (36.0-45.0); Lymphocytes % 9.6 % (15.3-44.8); MPV 8.6 fL (7.6-11.3); RBC Red Blood Cell Count 3.14 M/uL (3.86-4.86)
[2021-04-07 06:29] LABS: Albumin 2.7 g/dL (3.4-5.0); BUN Blood Urea Nitrogen 11 mg/dL (7-18); Bicarbonate 23 mmol/L (21-32); Glucose Level 104 mg/dL (74-106); Magnesium 1.7 mg/dL (1.8-2.4); Phosphorus 3.2 mg/dL (2.5-4.9); Potassium 3.8 mmol/L (3.5-5.1); Sodium Level 142 mmol/L (136-145)
[2021-04-07 08:26] LABS: Blood Morphology Comment NOT SEEN (NOT SEEN); Platelet Estimate DECR
[2021-04-07] MEDS: ENOXAPARIN 40 MG/0.4 ML SQ SCH (08:39)
[2021-04-07] MEDS: DOCUSATE NA 100 MG CAP PO SCH ×2 (08:43→20:08)
[2021-04-07] MEDS: KETOROLAC 30 MG/ML INJ IV PRN (08:57)
[2021-04-07 08:58] LABS: HIV AG/AB 4TH GEN Non-reactive (Non-reactive)
[2021-04-07] MEDS ORDERED: POTASSIUM CL SA 10 MEQ TAB PO ONE (09:00)
[2021-04-07] MEDS ORDERED: MAGNESIUM SULFATE 1 gm IVPB 1 GM/100 ML BAG IV ONE (09:00)
[2021-04-07] MEDS: CIPROFLOXACIN 400mg IV 400 MG/200 ML BAG IV SCH (10:11)
--- NOTE | 2021-04-07 13:27 | P.PN ---
Subjective Date of Service: 04/07/21 Primary Care Provider: Amelia Amaya NP Chief Complaint: chest pain, presyncope Patient has no complaint except pain in the left axilla after the lymph node biopsy. She desires to go home. No fever. Leukocytosis trended up today. Physical Examination - Vital Signs Temperature: 99.4 F Blood Pressure: 116/58 Pulse: 76 Respirations: 18 Pulse Ox (%): 98 - Studies Microbiology Data (last 24 hrs): 04/02/21 08:20 Blood - Blood Aerobic Blood Culture - Final No growth in 5 days. 04/02/21 08:20 Blood - Blood Anaerobic Blood Culture - Final No growth in 5 days. 04/02/21 08:40 Blood - Blood Aerobic Blood Culture - Final No growth in 5 days. 04/02/21 08:40 Blood - Blood Anaerobic Blood Culture - Final No growth in 5 days. Assessment And Plan Physician Review Additional Text: Physical exam GEN: Alert, oriented HEENT: Normal conjunctiva, sclera anicteric CV: Regular rate and rhythm, no edema Pulm: Nonlabored respiration on room air, clear to auscultation bilaterally ABD: Soft, mild-mod diffuse tenderness to palpation, moderate suprapubic tenderness MSK: No joint tenderness Integumentary: No rashes / lesions Neuro: Normal speech, normal affect, moves all extremities, 5/5 strength, CN II- XII grossly intact Problem list chest pain, palpitations fatigue, weakness likely secondary to hypotension vs possible underlying arrhythmia leukocytosis of unknown etiology unintentional weight loss (~40lb in 1yr) Hypotension Normocytic anemia Dyspareunia h/o irritable bowel syndrome h/o rheumatoid arthritis Chest pain/palpitationstroponin negative, echo normal, seen by cardiology. Chest pain deemed not to be of cardiac origin. No further work-up recommended Unclear etiology of all of patient's other symptoms. Fatigue/weakness, hypotension, back pain, abdominal pain. Also over the last week, patient has had bilateral leg cramping pain in thighs CRP, ESR, CPK WNL CT abdomen/pelvis wit nonspecific findings suggestive of maybe colitis Patient was empirically started on ciprofloxacin and Flagyl on 04/02 Leukocytosis is trending up. Chronic anemia, unclear etiology, normocytic. Peripheral blood smear is unremarkable. Patient does not appear septic Unclear etiology for hypotension, although patient does not have electrolyte abnormalities, she may have adrenal insufficiency, given history of autoimmune disease. Cosyntropin test result is unremarkable so far. Midodrine started evening of 04/03, increased to 7.5mg TID on 04/04. Blood pressure readings improved with midodrine. MAPS: ~60s AM cortisol 04/04: borderline low-normal. ACTH/renin/aldosterone pending. GLADIS pending Also possibility of a leukemia/lymphoma, blood smear sent to pathology - unremarkable. Heme/Onc consulted - felt unlikely to be malignancy. Follow up lymph node biopsy. Infectious disease is following. General surgery-Dr. Maldonado input appreciated. L ovarian cyst enlarged since last CT ~1 week ago Transvaginal ultrasound 04/04: Inconclusive, patient unable to tolerate secondary to pain Patient seen by gynecology-Dr. Liz. No gynecological pathology noted on examination.
--- NOTE | 2021-04-07 16:13 | PN ---
Date of Progress Note: 04/07/2021 Subjective: The patient was admitted with acute kidney injury secondary to poor perfusion, ATN. The patient had recurrent syncope and low blood pressure. All workup including echocardiogram and cortisol level came normal. The patient had lymph node removal. The patient was started on midodrine. Blood pressure started to stabilize. Physical Examination: Vital Signs: When I saw the patient; blood pressure 116/58, pulse of 76, afebrile. The patient had good urine output. Chest: Clear to auscultation. Heart: S1, S2. Regular. Abdomen: Soft, nontender. Extremities: No edema. Laboratory Data: WBC 24.1, H and H 9.5/28.8. Sodium 142, potassium 3.8, bicarb 23, BUN 11, creatinine 0.3, calcium 8.1, phosphorus 3.2, magnesium 1.7. PC ratio is still pending. Current Medications: The patient on include; 1. Ciprofloxacin. 2. Metronidazole. 3. Midodrine 7.5 t.i.d. 4. Ketorolac. 5. Zofran. 6. IV fluid at 125 per hour. Assessment And Plan: 1. Hypotension, possible secondary to autonomic disease, responding to midodrine, possibility of relative adrenal insufficiency also. I am going to continue midodrine and we will follow up the patient given the presence of the anemia and leukocytosis. I am going to send for serum protein electrophoresis to evaluate if there is any amyloidosis and we will follow up. 2. Hypomagnesemia. We will supplement. 3. Leukocytosis. Continue current antibiotic. We will follow up lymph node biopsy. Time spent examining the patient [id number] placing order discussing with the patient reviewing data discussing the case with all of our subspecialty including hospitalist 35 minutes DIMITRIOS Voice ID: [id number] Report ID: [id number] DONIS
[2021-04-07] MEDS: HYDROCODONE/APAP 7.5/325 MG TAB PO PRN (20:07)
[2021-04-07] MEDS ORDERED: levoFLOXacin 750 MG TAB PO SCH (21:00)
[2021-04-07 22:22] LABS: Urine Protein/Creatinine Ratio 0.44 ratio (<0.15)
[2021-04-08] MEDS: NA CHLORIDE 0.9% 1,000 ML IV SCH (01:46)
[2021-04-08 04:56] LABS: Absolute Lymphocytes (CBC) 2.6 K/uL (0.7-4.9); Basophils % 0.2 % (0-1.3); Hematocrit 26.8 % (36.0-45.0); Lymphocytes % 17.5 % (15.3-44.8); MPV 8.8 fL (7.6-11.3); RBC Red Blood Cell Count 2.95 M/uL (3.86-4.86)
[2021-04-08 05:07] LABS: ALT/SGPT 31 U/L (12-78); AST/SGOT 32 U/L (15-37); Albumin 2.6 g/dL (3.4-5.0); Alkaline Phosphatase 55 U/L (45-117); BUN Blood Urea Nitrogen 9 mg/dL (7-18); Bicarbonate 26 mmol/L (21-32); Bilirubin Total 0.3 mg/dL (0.2-1.0); Glucose Level 92 mg/dL (74-106); Potassium 3.8 mmol/L (3.5-5.1); Protein, Total 5.1 g/dL (6.4-8.2); Sodium Level 141 mmol/L (136-145)
[2021-04-08] MEDS: MIDODRINE HCL 5 MG TABLET PO SCH (05:21)
[2021-04-08 05:31] LABS: Magnesium 1.9 mg/dL (1.8-2.4)
[2021-04-08 08:59] VITALS: BP 110/60; TEMP 98.3
[2021-04-08] MEDS: DOCUSATE NA 100 MG CAP PO SCH (09:00)
[2021-04-08] MEDS ORDERED: POTASSIUM CL SA 10 MEQ TAB PO ONE (09:00)
[2021-04-08 09:22] VITALS: O2SAT 95
[2021-04-08] MEDS: ENOXAPARIN 40 MG/0.4 ML SQ SCH (09:42)
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
== END 2021-04-08 13:45 | disposition home or self-care (01) | DRG 264 ==
LOC: ER 07:31 → ERHOLD 11:24 → OBSVTOIN 19:33 → 2ND 19:47
PROVIDERS: ADMIT Hospitalist; ATTEND Hospitalist
PROC: 07B60ZX Excision of Left Axillary Lymphatic, Open Approach, Diagnostic (ICD-10-PCS; principal; 2021-04-06 14:45)
DX: R07.9 Chest pain, unspecified (principal); N17.0 Acute kidney failure with tubular necrosis; Z68.1 Body mass index [BMI] 19.9 or less, adult; C85.90 Non-Hodgkin lymphoma, unspecified, unspecified site; E27.40 Unspecified adrenocortical insufficiency; R63.4 Abnormal weight loss; D72.829 Elevated white blood cell count, unspecified; R00.2 Palpitations; I95.1 Orthostatic hypotension; D64.9 Anemia, unspecified; N94.10 Unspecified dyspareunia; M06.9 Rheumatoid arthritis, unspecified; N83.202 Unspecified ovarian cyst, left side; E83.42 Hypomagnesemia; E87.6 Hypokalemia; F17.210 Nicotine dependence, cigarettes, uncomplicated; K58.9 Irritable bowel syndrome, unspecified; M54.9 Dorsalgia, unspecified; D69.6 Thrombocytopenia, unspecified; M79.606 Pain in leg, unspecified; Z20.822 Contact with and (suspected) exposure to COVID-19
CPT/HCPCS: 0240U; 36415; 70450; 71045; 74177; 76830; 80048; 80053; 80061; 80076; 81003; 82024; 82040; 82088; 82533; 82550; 82570; 82607; 82627; 82947; 83605; 83735; 83880; 84100; 84132; 84145; 84156; 84244; 84439; 84443; 84484; 85025; 85610; 85652; 86038; 86140; 86235; 86304; 86592; 87015; 87040; 87070; 87075; 87077; 87102; 87116; 87176; 87186; 87205; 87206; 87389; 88305; 93005; 93306; 93880; 97161; 99285; G0378; J0744; J0834; J1100; J1650; J2250; J2405; J2704; J3010; J3475; J3480; J7030; J7040; Q9967

== ENCOUNTER → 2023-09-20 | Emergency (ER) | payer BC ==
[~2023-09-20] MED LIST: FENTANYL CITR 100 MCG/2 ML ONE; KETOROLAC 30 MG/ML INJ ONE; NA CHLORIDE 0.9% 1,000 ML ONE; NA CHLORIDE 0.9% 2,000 ML ONE; ONDANSETRON 4 MG/2 ML VIAL ONE
--- OUTSIDE RECORDS SUMMARY | 2023-09-20 11:53 | XMS REPORT | Continuity of Care Document ---
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 Name Role Phone Amelia Aamya Attending Clinician Unavailable Aislinn Arroyo Attending Clinician Unavailable Cesar Brady Attending Clinician Unavailable Payers Payer Name Policy Type Policy Number Effective Date Expirati on Date Source [place] [address] [id number] [facility] Problems Condition Name Condition Details Condition Category Status Onset Date Resolution Date Last Treatment Date Treating Clinician Comments Source [id number] Irritable bowel syndrome with constipati on Problem [facility] [id number] Unintentio nal weight loss Problem [facility] [id number] Loss of appetite Problem [facility] Allergic rhinitis Allergic rhinitis Problem [facility] [id number] Gastroesop hageal reflux disease, unspecifie d whether esophagiti s present Problem [facility] [id number] Tobacco abuse Problem [facility] Back pain Back pain Problem Comm on [facility] Breast mass Breast mass, right Problem [facility] 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, lymph nodes of multiple sites Problem Common [facility] Anemia in neoplastic disease Anemia complicati ng neoplastic disease Problem [facility] Lymphoma Lymphoma Problem [facility] Allergies, Adverse Reactions, Alerts Allergy Name Allergy Type Status Severity Reaction(s) Onset Date Inactive Date Treating Clinician Comments Source codeine codeine Active Unknown [facility] Social History Social Habit Start Date Stop Date Quantity Comments Source History of Tobacco Use Current Smoker [facility] Sex Assigned At [facility] Smoking Status Start Date Stop Date Source Current Smoker 2022-04-18 00:00:00 [facility] Medications Ordered Medication Name Filled Medication Name Start Date Stop Date Current Medication? Ordering Clinician Indication Dosage Frequency Signature (SIG) Comments Components Source Meloxicam 7.5 MG Meloxicam 7.5 MG 2020-07 00:00: 00 06-18 00:00 :00 No 1{table t_as_ne eded} QD Meloxicam 7.5 MG Meloxicam 7.5 MG Meloxicam 7.5 MG 2020-07 00:00: 00 06-18 00:00 :00 No 1{table t_as_ne eded} QD Meloxicam 7.5 MG Meloxicam 7.5 MG Meloxicam 7.5 MG 2020-07 00:00: 00 06-18 00:00 :00 No 1{table t_as_ne eded} QD Meloxicam 7.5 MG Famotidine 20 MG Famotidine 20 MG No 1{table t_at_be dtime_a s_neede d} QD Famotidine 20 MG Colon Formula Colon Formula No Colon Formula Laxative 5 MG Laxative 5 MG No 1{table t_as_ne eded} QD Laxative 5 MG Omeprazole 20 MG Omeprazole 20 MG No QD Omeprazole 20 MG Aleve Aleve No Aleve Colon Formula Colon Formula No Colon Formula Omeprazole 20 MG Omeprazole 20 MG No QD Omeprazole 20 MG Aleve Aleve No Aleve Famotidine 20 MG Famotidine 20 MG No 1{table t_at_be dtime_a s_neede d} QD Famotidine 20 MG Laxative 5 MG Laxative 5 MG No 1{table t_as_ne eded} QD Laxative 5 MG Fiber Fiber No Fiber Colon Formula Colon Formula No Colon Formula Omeprazole 20 MG Omeprazole 20 MG No QD Omeprazole 20 MG Aleve Aleve No Aleve Famotidine 20 MG Famotidine 20 MG No 1{table t_at_be dtime_a s_neede d} QD Famotidine 20 MG Laxative 5 MG Laxative 5 MG No 1{table t_as_ne eded} QD Laxative 5 MG Fiber Fiber No Fiber Colon Formula Colon Formula No Colon Formula Omeprazole 20 MG Omeprazole 20 MG No QD Omeprazole 20 MG Aleve Aleve No Aleve Famotidine 20 MG Famotidine 20 MG No 1{table t_at_be dtime_a s_neede d} QD Famotidine 20 MG Laxative 5 MG Laxative 5 MG No 1{table t_as_ne eded} QD Laxative 5 MG Fiber Fiber No Fiber Aleve Aleve No Aleve Famotidine 20 MG Famotidine 20 MG No 1{table t_at_be dtime_a s_neede d} QD Famotidine 20 MG Laxative 5 MG Laxative 5 MG No 1{table t_as_ne eded} QD Laxative 5 MG Fiber Fiber No Fiber Omeprazole 20 MG Omeprazole 20 MG No QD Omeprazole 20 MG Colon Formula Colon Formula No Colon Formula Aleve Aleve No Aleve Famotidine 20 MG Famotidine 20 MG No 1{table t_at_be dtime_a s_neede d} QD Famotidine 20 MG Laxative 5 MG Laxative 5 MG No 1{table t_as_ne eded} QD Laxative 5 MG Fiber Fiber No Fiber Omeprazole 20 MG Omeprazole 20 MG No QD Omeprazole 20 MG Colon Formula Colon Formula No Colon Formula Pantoprazol e Sodium 40 MG Pantoprazol e Sodium 40 MG No 1{table t} QD Pantoprazo le Sodium 40 MG Pantoprazol e Sodium 40 MG Pantoprazol e Sodium 40 MG No 1{table t} QD Pantoprazo le Sodium 40 MG Pantoprazol e Sodium 40 MG Pantoprazol e Sodium 40 MG No 1{table t} QD Pantoprazo le Sodium 40 MG Pantoprazol e Sodium 40 MG Pantoprazol e Sodium 40 MG No 1{table t} QD Pantoprazo le Sodium 40 MG Fiber Fiber No Fiber Vital Signs Vital Name Observation Time Observation Value Comments S kenn height 2022-04-18 08:20:00 62 [in_i] Commo n [facility] weight 2022-04-18 08:20:00 107.4 [lb_av] Co [facility] temperature 2022-04-18 08:20:00 97.0 [degF] Com [facility] bmi 2022-04-18 08:20:00 19.64 kg/m2 Comm on [facility] oximetry 2022-04-18 08:20:00 97 % Commo n [facility] respiratory rate 2022-04-18 08:20:00 17 /min [facility] blood pressure systolic 2022-04-18 08:20:00 97 mm[Hg] [facility] blood pressure diastolic 2022-04-18 08:20:00 51 mm[Hg] [facility] height 2022-04-18 08:40:00 62 [in_i] Commo n [facility] weight 2022-04-18 08:40:00 107.4 [lb_av] Co [facility] temperature 2022-04-18 08:40:00 97.0 [degF] Com [facility] bmi 2022-04-18 08:40:00 19.64 kg/m2 Comm on [facility] oximetry 2022-04-18 08:40:00 97 % Commo n [facility] respiratory rate 2022-04-18 08:40:00 17 /min Common [facility] blood pressure systolic 2022-04-18 08:40:00 97 mm[Hg] [facility] blood pressure diastolic 2022-04-18 08:40:00 50 mm[Hg] [facility] height 2022-02-14 10:40:00 62 [in_i] Commo n [facility] weight 2022-02-14 10:40:00 106.8 [lb_av] Co mmon [facility] temperature 2022-02-14 10:40:00 97.0 [degF] Com mon [facility] bmi 2022-02-14 10:40:00 19.53 kg/m2 Comm on [facility] oximetry 2022-02-14 10:40:00 98 % Commo n [facility] respiratory rate 2022-02-14 10:40:00 17 /min Common [facility] blood pressure systolic 2022-02-14 10:40:00 98 mm[Hg] [facility] blood pressure diastolic 2022-02-14 10:40:00 51 mm[Hg] Common [facility] height 2021-05-14 13:00:00 62 [in_i] Commo n [facility] weight 2021-05-14 13:00:00 102.7 [lb_av] Co mmon [facility] temperature 2021-05-14 13:00:00 96.7 [degF] Com [facility] bmi 2021-05-14 13:00:00 18.78 kg/m2 Comm on [facility] oximetry 2021-05-14 13:00:00 99 % Commo n [facility] respiratory rate 2021-05-14 13:00:00 18 /min Common [facility] blood pressure systolic 2021-05-14 13:00:00 100 mm[Hg] Common [facility] blood pressure diastolic 2021-05-14 13:00:00 60 mm[Hg] [facility] height 2021-03-09 09:00:00 62 [in_i] Commo n [facility] weight 2021-03-09 09:00:00 102.8 [lb_av] Co mmon [facility] temperature 2021-03-09 09:00:00 97.7 [degF] Com mon [facility] bmi 2021-03-09 09:00:00 18.8 kg/m2 Commo n [facility] oximetry 2021-03-09 09:00:00 100 % Comm n [facility] respiratory rate 2021-03-09 09:00:00 18 /min [facility] blood pressure systolic 2021-03-09 09:00:00 90 mm[Hg] [facility] blood pressure diastolic 2021-03-09 09:00:00 60 mm[Hg] [facility] Encounters Start Date/Time End Date/Time Encounter Type Admission Type Attending Clinicians Care Facility Care Department Encounter ID Source 2022-08-19 09:07:00 Outpatient Amaya, Avnee [facility] [id number] [facility] 2022-07-05 15:59:01 Outpatient Amaya, Avnee [facility] [id number] [facility] 2022-02-14 10:23:01 Outpatient Amaya, Avnee [facility] [id number] [facility] 2022-02-11 16:54:00 Outpatient Amaya, Avnee [facility] [id number] [facility] 2022-02-04 12:32:01 Outpatient Amaya, Avnee [facility] [id number] [facility] 2021-08-11 14:20:55 Outpatient Amaya, Avnee [facility] [id number] [facility] 2021-08-11 14:06:41 Outpatient Amaya, Avnee [facility] [id number] [facility] 2021-08-11 13:52:46 Outpatient Amaya, Avnee [facility] [id number] [facility] 2021-08-11 13:51:22 Outpatient Amelia Amaya [facility] [id number] [facility] 2021-08-11 13:49:50 Outpatient Amelia Amaya [facility] [id number] [facility] 2021-08-11 13:41:51 Outpatient Amelia Amaya [facility] [id number] [facility] 2021-08-11 13:41:00 Outpatient Amelia Amaya [facility] [id number] [facility] 2021-08-11 13:37:30 Outpatient Aislinn Arroyo [facility] [id number] [facility] 2021-08-11 13:20:42 Outpatient Aislinn Arroyo [facility] [id number] [facility] 2021-08-11 12:24:26 Outpatient Aislinn Arroyo [facility] [id number] [facility] 2021-08-11 12:18:17 Outpatient Cesar Brady [facility] [id number] [facility] 2021-08-11 12:15:01 Outpatient Cesar Brady [facility] [id number] [facility] 2021-08-11 12:13:51 Outpatient Cesar Brady [facility] [id number] [facility] 2021-08-11 12:13:12 Outpatient Cesar Brady [facility] [id number] [facility] 2021-08-11 12:10:43 Outpatient Cesar Brady [facility] [id number] [facility] 2021-08-11 12:08:56 Outpatient Cesar Brady [facility] [id number] [facility] 2021-08-11 12:01:27 Outpatient Cesar Brady [facility] [id number] [facility] 2021-08-11 12:01:06 Outpatient Cesar Brady [facility] [id number] [facility] 2021-08-11 11:56:01 Outpatient Cesar Brady [facility] [id number] [facility] 2022-05-03 00:00:00 2022-05-03 00:00:00 (TEL) [facility] [id number] [facility] 2022-04-18 00:00:00 2022-04-18 00:00:00 OFFICE VISIT EST PT LEVEL 3 [facility] ST[facility] [id number] [facility] 2022-04-18 00:00:00 2022-04-18 00:00:00 SUB ANNUAL [facility] VISIT [facility] [id number] [facility] 2022-02-25 00:00:00 2022-02-25 00:00:00 (TEL) [facility] [id number] [facility] 2022-02-14 00:00:00 2022-02-14 00:00:00 OFFICE VISIT EST PT LEVEL 3 [facility] [id number] [facility] 2021-05-19 00:00:00 2021-05-19 00:00:00 (TEL) [facility] [id number] [facility] 2021-05-14 00:00:00 2021-05-14 00:00:00 OFFICE VISIT EST PT LEVEL 3 [facility] [id number] [facility] 2021-05-10 00:00:00 2021-05-10 00:00:00 (TEL) [facility] [id number] [facility] 2021-03-31 00:00:00 2021-03-31 00:00:00 (TEL) [facility] [id number] [facility] 2021-03-09 00:00:00 2021-03-09 00:00:00 OFFICE VISIT ESTAB PT LEVEL 3 [facility] [id number] [facility] 2020-07-01 00:00:00 2020-07-01 00:00:00 Outpatient [facility] [id number] [facility] 2020-06-02 00:00:00 2020-06-02 00:00:00 Outpatient [facility] [id number] [facility] 2020-05-19 00:00:00 2020-05-19 00:00:00 Outpatient [facility] [id number] [facility] 2020-05-05 00:00:00 2020-05-05 00:00:00 Outpatient [facility] [id number] [facility] 2020-05-01 00:00:00 2020-05-01 00:00:00 Outpatient [facility] [id number] [facility]
[2023-09-20 13:00] LABS: Specific Gravity 1.018 (1.005-1.030); Urine Bacteria None Seen /HPF (<20); Urine Bilirubin NEGATIVE (Negative); Urine Blood Trace (Negative); Urine Clarity Clear (Clear); Urine Color Light-Yellow (Yellow); Urine Glucose NEGATIVE (Negative); Urine Mucus Slight /HPF (None Seen); Urine Protein NEGATIVE (Negative); Urine Urobilinogen Normal (Normal); Urine pH 6.5 (5.0-7.0)
[2023-09-20 13:15] LABS: Albumin 3.7 g/dL (3.4-5.0); Bilirubin Total 0.3 mg/dL (0.2-1.0); Globulin 3.7 g/dL (2.3-3.5); Protein, Total 7.4 g/dL (6.4-8.2)
--- NOTE | 2023-09-20 13:42 | RAD REPORT ---
EXAM DESCRIPTION: CT - Abdomen Pelvis Wo Contrast - 09/20/2023 1:06 pm CLINICAL HISTORY: Abdominal pain right flank pain COMPARISON: 2021 TECHNIQUE: Computed axial tomography of the abdomen and pelvis was obtained. IV and oral contrast we re not requested. All CT scans are performed using dose optimization technique as appropriate and may include automated exposure control or mA/KV adjustment according to patient size. FINDINGS: The evaluation of solid organs, vessels and bowel is limited secondary to the lack of con trast administration. The liver, pancreas, adrenals and kidneys appear grossly normal. The spleen has decreased in size and is within normal limits. Abdominal, pelvic and inguinal lymphadenopathy appears resolved 19 millimeter cystic structure left adnexa unchanged The appendix is normal. There is no evidence of diverticulitis. Hysterectomy. No adnexal mass IMPRESSION: Spleen has decreased in size and is within normal limits Abdominal, pelvic and inguinal lymphadenopathy appears resolved
--- NOTE | 2023-09-20 14:02 | EDPHYS ---
Physician Documentation [facility] Name: Tiffany Jean Age: 63 yrs Sex: Female : 1960 Arrival Date: 09/20/2023 Time: 11:50 Bed DX3 Private MD: ED Physician Mario Simmons HPI: 09/19 12:22 This 63 yrs old Female presents to ER via Unassigned with complaints of Back Pain. ms3 12:22 63-year-old female with past medical history of back pain,, presents to the emergency ms3 department for back pain that is been ongoing for 1 week. Patient states pain is a 10/10. Patient denies any alleviating or inciting factors. Patient states she sees a pain management physician in [place] who currently has her on hydrocodone and gabapentin. Patient denies dysuria, incontinence, fevers, or chills. Historical: - Allergies: 12:43 Codeine; tl4 - PMHx: 12:43 Irritable bowel syndrome; tl4 - PSHx: 12:43 hysterectomy; Neck sx; tl4 - Immunization history:: Adult Immunizations unknown. - Social history:: Smoking status: Patient reports the use of cigarette tobacco products, smokes one-half pack cigarettes per day. ROS: 12:22 Constitutional: Negative for fever, and chills. Neck: Negative for injury, pain, and ms3 swelling, Cardiovascular: Negative for chest pain, and palpitations. Respiratory: Negative for shortness of breath, cough, wheezing, and pleuritic chest pain, Abdomen/GI: Negative for abdominal pain, nausea, vomiting, diarrhea, and constipation, 12:22 Skin: Negative for injury, rash, and discoloration, 12:22 Back: Positive for flank pain, on the right, Exam: 12:22 Constitutional: This is a well developed, well nourished patient who is awake, alert, ms3 and in no acute distress. Head/Face: Normocephalic, atraumatic. Neck: Trachea midline, no cervical lymphadenopathy. Supple, full range of motion without nuchal rigidity, or vertebral point tenderness. No Meningismus. Chest/axilla: Normal chest wall appearance and motion. Nontender with no deformity. Cardiovascular: Regular rate and rhythm with a normal S1 and S2. No gallops, murmurs, or rubs. Normal PMI, no JVD. No pulse deficits. Respiratory: Lungs have equal breath sounds bilaterally, clear to auscultation and percussion. No rales, rhonchi or wheezes noted. No increased work of breathing, no retractions or nasal flaring. Abdomen/GI: Soft, non-tender, with normal bowel sounds. No distension or tympany. No guarding or rebound. No evidence of tenderness throughout. Skin: Warm, dry with normal turgor. Normal color with no rashes, no lesions, and no evidence of cellulitis. MS/ Extremity: Pulses equal, no cyanosis. Neurovascular intact. Full, normal range of motion. Vital Signs: 12:40 BP 110 / 56; Pulse 82; Resp 16; Temp 98.2(O); Pulse Ox 97% on R/A; Weight 56.25 kg; tl4 Height 5 ft. 2 in. ; Pain 10/10; 13:18 Pain 7/10; me1 12:40 Body Mass Index 22.68 (56.25 kg, 157.48 cm) tl4 12:40 Pain Scale: Adult tl4 13:18 Pain Scale: Adult me1 MDM: 12:22 Differential diagnosis: Metastatic Disease Neoplasm Kidney stone. ms3 12:23 Patient medically screened. ms3 14:05 Data reviewed: vital signs, nurses notes, lab test result(s), radiologic studies, and ms3 as a result, I will discharge patient. I considered the following discharge prescriptions or medication management in the emergency department Medications were administered in the Emergency Department. See MAR. Care significantly affected by the following chronic conditions: Cancer. Counseling: I had a detailed discussion with the patient and/or guardian regarding the historical points, exam findings, and any diagnostic results supporting the discharge/admit diagnosis, lab results, radiology results, the need for outpatient follow up, to return to the emergency department if symptoms worsen or persist or if there are any questions or concerns that arise at home. Special discussion: Based on the patient's Hx, exam, and Dx evaluation, there is no indication for emergent surgery or inpatient Tx. It is understood by the patient/guardian that if the Sx's persist or worsen they need to return immediately for re-evaluation. ED course: Discussed labs, CT scan with patient. Patient to follow-up with primary care physician in 2 to 3 days. Patient understands and agrees with plan. All questions were answered. Return precautions discussed include worsening symptoms, or any other concerns. On reevaluation patient is alert and oriented x 4, no apparent distress, nontoxic-appearing, ambulatory emerged primary, speaking full sentences. 09/19 12:21 Order name: CMP; Complete Time: 13:24 ms3 09/19 12:21 Order name: Urinalysis w/ reflexes; Complete Time: 13:24 ms3 09/19 12:21 Order name: CT Abd/Pelvis - Without Contrast; Complete Time: 13:47 ms3 09/19 12:21 Order name: IV Saline Lock; Complete Time: 12:42 ms3 09/19 12:21 Order name: Labs collected and sent; Complete Time: 12:42 ms3 Administered Medications: 12:54 Drug: NS 0.9% IV 1000 ml IV at 1 bolus Per protocol; 1000 mL bolus Route: IV; Rate: 1 me1 bolus; Site: right antecubital; 13:41 Follow up: Response: No adverse reaction; IV Status: Completed infusion; IV Intake: me1 1000ml 12:54 Drug: TORadol - Ketorolac IVP 15 mg IVP once Route: IVP; Site: right antecubital; me1 13:18 Follow up: Pain 7/10 Adult; Response: No adverse reaction; Pain is decreased me1 Disposition Summary: 09/20/23 14:01 Discharge Ordered Notes: Location: Home ms3 Condition: Stable ms3 Diagnosis - Flank pain ms3 - Hematuria, unspecified ms3 Followup: ms3 - With: Private Physician - When: 2 - 3 days - Reason: Recheck today's complaints Discharge Instructions: - Discharge Summary Sheet ms3 - Hematuria, Adult ms3 - Flank Pain, Adult, [id number] ms3 Forms: - Medication Reconciliation Form ms3 - Thank You Letter ms3 - Antibiotic Education ms3 - Prescription Opioid Use ms3 - Patient Portal Instructions ms3 - Leadership Thank You Letter ms3 Prescriptions: - Cyclobenzaprine 10 mg Oral Tablet - take 1 tablet ORAL route every 8 hours As needed; 30 tablet; Refills: 0, ms3 Product Selection Permitted Signatures: Dispatcher [employer] Mario Benito DO DO ms3 Valarie Giang RN RN me1 Logdahl, Matheus, RN RN tl4
--- NOTE | 2023-09-20 14:02 | ER ---
Nurse's Notes [facility] Name: Tiffany Jean Age: 63 yrs Sex: Female : 1960 Arrival Date: 09/20/2023 Time: 11:50 Bed DX3 Private MD: Diagnosis: Flank pain;Hematuria, unspecified Presentation: 09/19 12:40 Chief complaint: Patient states: Pt c/o right flank pain that radiates into right lower tl4 quadrant since last week. Pt denies urinary sxs, nausea/vomiting, fever/chills. No relief with OTC or rx pain meds. Coronavirus screen: At this time, the client does not indicate any symptoms associated with coronavirus-19. Ebola Screen: No symptoms or risks identified at this time. Initial Sepsis Screen: Does the patient meet any 2 criteria? No. Patient's initial sepsis screen is negative. Does the patient have a suspected source of infection? No. Patient's initial sepsis screen is negative. Risk Assessment: Do you want to hurt yourself or someone else? Patient reports no desire to harm self or others. Onset of symptoms was September 14, 2023. 12:40 Method Of Arrival: Ambulatory tl4 12:40 Acuity: RUSS 3 tl4 Triage Assessment: 12:44 General: Appears uncomfortable, Behavior is calm, cooperative. Pain: Complains of pain tl4 in back and abdomen. EENT: No deficits noted. No signs and/or symptoms were reported regarding the EENT system. Neuro: No deficits noted. Cardiovascular: No deficits noted. Respiratory: No deficits noted. GI: No signs and/or symptoms were reported involving the gastrointestinal system. : No signs and/or symptoms were reported regarding the genitourinary system. Derm: No signs and/or symptoms reported regarding the dermatologic system. Musculoskeletal: Circulation, motion, and sensation intact. Capillary refill < 3 seconds, Range of motion: limited in lower back. Historical: - Allergies: 12:43 Codeine; tl4 - PMHx: 12:43 Irritable bowel syndrome; tl4 - PSHx: 12:43 hysterectomy; Neck sx; tl4 - Immunization history:: Adult Immunizations unknown. - Social history:: Smoking status: Patient reports the use of cigarette tobacco products, smokes one-half pack cigarettes per day. Screenin:56 [facility] ED Fall Risk Assessment (Adult) History of falling in the last 3 months, me1 including since admission No falls in past 3 months (0 pts) Confusion or Disorientation No (0 pts) Intoxicated or Sedated No (0 pts) Impaired Gait No (0 pts) Mobility Assist Device Used No (0 pt) Altered Elimination No (0 pt) Score/Fall Risk Level 0 - 2 = Low Risk Maintained a safe environment, Provided non-skid footwear, Hourly rounding (assess needs \T\ fall precautionary measures) done. Abuse screen: Denies threats or abuse. Nutritional screening: No deficits noted. Tuberculosis screening: No symptoms or risk factors identified. Assessment: 12:56 General: Appears uncomfortable, well groomed, well developed, well nourished, Behavior me1 is cooperative, appropriate for age, restless, Reports Pt c/o right flank pain that radiates into right lower quadrant since last week. Pt denies urinary sxs, nausea/vomiting, fever/chills. No relief with OTC or rx pain meds. Pain: Complains of pain in back Pain radiates to abdomen Pain currently is 10 out of 10 on a pain scale. Quality of pain is described as sharp, shooting, Pain began a week ago. Neuro: Level of Consciousness is awake, alert, obeys commands, Oriented to person, place, time, situation, Appropriate for age. Cardiovascular: Patient's skin is warm and dry. Respiratory: Airway is patent Trachea midline Respiratory effort is even, unlabored, Respiratory pattern is regular, symmetrical. GI: Reports nausea, vomiting. : Reports pain in right flank(s), in lower back since a week ago. Denies burning with urination, urinary frequency. Vital Signs: 12:40 BP 110 / 56; Pulse 82; Resp 16; Temp 98.2(O); Pulse Ox 97% on R/A; Weight 56.25 kg; tl4 Height 5 ft. 2 in. ; Pain 10/10; 13:18 Pain 7/10; me1 12:40 Body Mass Index 22.68 (56.25 kg, 157.48 cm) tl4 12:40 Pain Scale: Adult tl4 13:18 Pain Scale: Adult me1 ED Course: 11:53 Patient arrived in ED. mg5 11:58 Mario Simmons DO is Attending Physician. ms3 12:42 Triage completed. tl4 12:44 Arm band placed on right wrist. tl4 12:55 Initial lab(s) drawn, by ED staff, Urine collected: clean catch specimen, cloudy. me1 Inserted saline lock: 20 gauge in right antecubital area, using aseptic technique. 12:56 Patient has correct armband on for positive identification. Provided Education on: POC. me1 Verbalized understanding.. 13:08 CT Abd/Pelvis - Without Contrast In Process Unspecified. EDMS 14:16 Kiran Thakur, RN is Primary Nurse. bp 14:17 No provider procedures requiring assistance completed. IV discontinued, intact, bp bleeding controlled, No redness/swelling at site. Pressure dressing applied. Administered Medications: 12:54 Drug: NS 0.9% IV 1000 ml IV at 1 bolus Per protocol; 1000 mL bolus Route: IV; Rate: 1 me1 bolus; Site: right antecubital; 13:41 Follow up: Response: No adverse reaction; IV Status: Completed infusion; IV Intake: me1 1000ml 12:54 Drug: TORadol - Ketorolac IVP 15 mg IVP once Route: IVP; Site: right antecubital; me1 13:18 Follow up: Pain 7/10 Adult; Response: No adverse reaction; Pain is decreased me1 Medication: 12:56 VIS not applicable for this client. me1 Intake: 13:41 IV: 1000ml; Total: 1000ml. me1 Outcome: 14:01 Discharge ordered by MD. ms3 14:16 Discharged to home ambulatory, bp 14:16 Condition: stable 14:16 Discharge instructions given to patient, Instructed on discharge instructions, follow up and referral plans. medication usage, Demonstrated understanding of instructions, follow-up care, medications, Prescriptions given X 1, 14:17 Patient left the ED. bp Signatures: Dispatcher [employer] EDMS Kiran Thakur, RN RN bp Mario Simmons DO DO ms3 Valarie Giang, DAMON RN me1 Gianna Moore mg5 Matheus Carlos RN RN tl4 Corrections: (The following items were deleted from the chart) 12:56 12:40 Chief complaint: Patient states: Pt c/o right flank pain that radiates into right me1 lower quadrant since last week. Pt denies urinary sxs, nausea/vomiting, fever/chills. No relief with OTC or rx pain meds tl4
[2023-09-20 14:40] VITALS: BP 110/56; TEMP 98.2; O2SAT 97
== END ==
LOC: ER 11:50
DX: R10.9 Unspecified abdominal pain (principal); R31.9 Hematuria, unspecified; F17.210 Nicotine dependence, cigarettes, uncomplicated; Z88.5 Allergy status to narcotic agent
CPT/HCPCS: 81001; 36415; 80053; 74176; J7030; 96361; 96374; 99284

== ENCOUNTER → 2023-09-22 | Emergency (ER) | payer BC ==
[~2023-09-22] MED LIST changes: -FENTANYL CITR 100 MCG/2 ML ONE; -KETOROLAC 30 MG/ML INJ ONE; +MORPHINE 4 MG/ML SYR ONE; -NA CHLORIDE 0.9% 1,000 ML ONE; -NA CHLORIDE 0.9% 2,000 ML ONE
--- OUTSIDE RECORDS SUMMARY | 2023-09-22 07:54 | XMS REPORT | Continuity of Care Document ---
Author Name Unknown Address [address] [place] [address] [facility] thconnect Address [address] [place] [address] Care Team Providers Care Signals Intelligence Analysis Manager Name Role Phone Amelia Amaya Attending Clinician Unavailable Aislinn Arroyo Attending Clinician Unavailable Cesar Brady Attending Clinician Unavailable James Attending Clinician Unavailable James Admitting Clinician Unavailable Payers Payer Name Policy Type Policy Number Effective Date Expirati on Date Source [facility] Gold 53 [id number] [facility] Problems Condition Name Condition Details Condition Category Status Onset Date Resolution Date Last Treatment Date Treating Clinician Comments Source [id number] Irritable bowel syndrome with constipati on Problem [facility] [id number] Unintentio nal weight loss Problem [facility] [id number] Loss of appetite Problem [facility] Allergic rhinitis Allergic rhinitis Problem [facility] [id number] Gastroesop hageal reflux disease, unspecifie d whether esophagiti s present Problem [facility] [id number] Tobacco abuse Problem [facility] Back pain Back pain Problem Comm on [facility] Breast mass Breast mass, right Problem [facility] 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, lymph nodes of multiple sites Problem [facility] Anemia in neoplastic disease Anemia complicati ng neoplastic disease Problem [facility] Lymphoma Lymphoma Problem [facility] Allergies, Adverse Reactions, Alerts Allergy Name Allergy Type Status Severity Reaction(s) Onset Date Inactive Date Treating Clinician Comments Source codeine codeine Active Unknown [facility] Social History Social Habit Start Date Stop Date Quantity Comments Source History of Tobacco Use Current Smoker [facility] Sex Assigned At [facility] Smoking Status Start Date Stop Date Source Current Smoker 2022-04-18 00:00:00 [facility] Medications Ordered Medication Name Filled Medication Name [...] 1{table t_as_ne eded} QD Meloxicam 7.5 MG Pantoprazol e Sodium 40 MG Pantoprazol e Sodium 40 MG No 1{table t} QD Pantoprazo le Sodium 40 MG Pantoprazol e Sodium 40 MG Pantoprazol e Sodium 40 MG No 1{table t} QD Pantoprazo le Sodium 40 MG Fiber Fiber No Fiber Famotidine 20 MG Famotidine 20 MG No [...] t} QD Pantoprazo le Sodium 40 MG Vital Signs Vital Name Observation Time Observation Value Comments Adelso hawk height 2022-04-18 08:20:00 62 [in_i] Commo n [facility] weight 2022-04-18 08:20:00 107.4 [lb_av] Co mmon [facility] temperature 2022-04-18 08:20:00 97.0 [degF] Com [facility] bmi 2022-04-18 08:20:00 19.64 kg/m2 Comm on [facility] oximetry 2022-04-18 08:20:00 97 % Commo n [facility] respiratory rate 2022-04-18 08:20:00 17 /min [facility] blood pressure systolic 2022-04-18 08:20:00 97 mm[Hg] [facility] blood pressure diastolic 2022-04-18 08:20:00 51 mm[Hg] [facility] height 2022-04-18 08:40:00 62 [in_i] Commo n [facility] weight 2022-04-18 08:40:00 107.4 [lb_av] Co [facility] temperature 2022-04-18 08:40:00 97.0 [degF] Com [facility] bmi 2022-04-18 08:40:00 19.64 kg/m2 Comm on [facility] oximetry 2022-04-18 08:40:00 97 % Commo n [facility] respiratory rate 2022-04-18 08:40:00 17 /min [facility] blood pressure systolic 2022-04-18 08:40:00 97 mm[Hg] Common [facility] blood pressure diastolic 2022-04-18 08:40:00 50 mm[Hg] [facility] height 2022-02-14 10:40:00 62 [in_i] Commo n [facility] weight 2022-02-14 10:40:00 106.8 [lb_av] Co on [facility] temperature 2022-02-14 10:40:00 97.0 [degF] Com [facility] bmi 2022-02-14 10:40:00 19.53 kg/m2 Comm on [facility] oximetry 2022-02-14 10:40:00 98 % Commo n [facility] respiratory rate 2022-02-14 10:40:00 17 /min Common [facility] blood pressure systolic 2022-02-14 10:40:00 98 mm[Hg] Common [facility] blood pressure diastolic 2022-02-14 10:40:00 51 mm[Hg] Common [facility] height 2021-05-14 13:00:00 62 [in_i] Commo n [facility] weight 2021-05-14 13:00:00 102.7 [lb_av] Co on [facility] temperature 2021-05-14 13:00:00 96.7 [degF] Com [facility] bmi 2021-05-14 13:00:00 18.78 kg/m2 Comm on [facility] oximetry 2021-05-14 13:00:00 99 % Commo n [facility] respiratory rate 2021-05-14 13:00:00 18 /min Common [facility] blood pressure systolic 2021-05-14 13:00:00 100 mm[Hg] Common [facility] blood pressure diastolic 2021-05-14 13:00:00 60 mm[Hg] Common [facility] height 2021-03-09 09:00:00 62 [in_i] Commo n [facility] weight 2021-03-09 09:00:00 102.8 [lb_av] Co mmon [facility] temperature 2021-03-09 09:00:00 97.7 [degF] Com mon [facility] bmi 2021-03-09 09:00:00 18.8 kg/m2 Commo n [facility] oximetry 2021-03-09 09:00:00 100 % Commo n [facility] respiratory rate 2021-03-09 09:00:00 18 /min [facility] blood pressure systolic 2021-03-09 09:00:00 90 mm[Hg] [facility] blood pressure diastolic 2021-03-09 09:00:00 60 mm[Hg] [facility] Encounters Start Date/Time End Date/Time Encounter Type Admission Type Attending [facility] Facility Care Department Encounter ID Source 2022-08-19 09:07:00 Outpatient Amelia Amaya [facility]LMLC STL[facility] [id number] [facility] 2022-07-05 15:59:01 Outpatient Monique Avnee STLMLC ST[facility] [id number] [facility] 2022-02-14 10:23:01 Outpatient Amelia Amaya STL[facility] ST[facility] [id number] [facility] 2022-02-11 16:54:00 Outpatient Amelia Amaya STLMLC ST[facility] [id number] [facility] 2022-02-04 12:32:01 Outpatient Amelia Amaya STLMLC ST[facility] [id number] [facility] 2021-08-11 14:20:55 Outpatient Amelia Amaya STLMLC ST[facility] [id number] [facility] 2021-08-11 14:06:41 Outpatient Liyah Amayae STLMLC ST[facility] [id number] [facility] 2021-08-11 13:52:46 Outpatient Amelia Amaya STELIZABETH[facility] STL[facility]C [id number] [facility] 2021-08-11 13:51:22 Outpatient Amelia Amaya [facility]ETH[facility] STL[facility]C [id number] [facility] 2021-08-11 13:49:50 Outpatient Amelia Amaya [facility] STL[facility] [id number] [facility] 2021-08-11 13:41:51 Outpatient Amelia Amaya [facility] STL[facility] [id number] [facility] 2021-08-11 13:41:00 Outpatient Amelia Amaya STEL[facility]ABETHLC STLMLC [id number] [facility] 2021-08-11 13:37:30 Outpatient Aislinn Arroyo STLMLC ST[facility]C [id number] [facility] 2021-08-11 13:20:42 Outpatient Aislinn Arroyo STLMLC STL[facility]C [id number] [facility] 2021-08-11 12:24:26 Outpatient Aislinn Arroyo STLMLC STL[facility]C [id number] [facility] 2021-08-11 12:18:17 Outpatient Cesar Brady STLMLC STL[facility]C [id number] [facility] 2021-08-11 12:15:01 Outpatient Cesar Brady STLMLC STL[facility]C [id number] [facility] 2021-08-11 12:13:51 Outpatient Cesar Brady STLMLC STL[facility]C [id number] [facility] 2021-08-11 12:13:12 Outpatient Cesar Brady STLMLC STLMLC [id number] [facility] 2021-08-11 12:10:43 Outpatient Cesar Brady STLMLC STLMLC [id number] [facility] 2021-08-11 12:08:56 Outpatient Cesar Brady STLMLC STL[facility]C [id number] [facility] 2021-08-11 12:01:27 Outpatient Cesar Brady STLMLC STLMLC [id number] [facility] 2021-08-11 12:01:06 Outpatient Cesar Brady STLMLC STL[facility]C [id number] [facility] 2021-08-11 11:56:01 Outpatient Cesar Brady STLMLC STLMLC [id number] [facility] 2022-11-04 00:00:00 2022-11-04 00:00:00 Outpatient GC_TNC_Jotriston s_J [facility] [id number] [facility] 2022-05-03 00:00:00 2022-05-03 00:00:00 (TEL) STLMLC STLMLC [id number] [facility] 2022-04-18 00:00:00 2022-04-18 00:00:00 OFFICE VISIT EST PT LEVEL 3 [facility]LMLC STLMLC [id number] [facility] 2022-04-18 00:00:00 2022-04-18 00:00:00 SUB ANNUAL [facility] WELLNESS VISIT STLMLC STLMLC [id number] [facility] 2022-02-25 00:00:00 2022-02-25 00:00:00 (TEL) STLMLC STLMLC [id number] [facility] 2022-02-14 00:00:00 2022-02-14 00:00:00 OFFICE VISIT EST PT LEVEL 3 [facility]LMLC STL[facility]C [id number] [facility] 2021-05-19 00:00:00 2021-05-19 00:00:00 (TEL) STLMLC STLMLC [id number] [facility] 2021-05-14 00:00:00 2021-05-14 00:00:00 OFFICE VISIT EST PT LEVEL 3 [facility]LMLC STLMLC [id number] [facility] 2021-05-10 00:00:00 2021-05-10 00:00:00 (TEL) STLMLC STLMLC [id number] [facility] 2021-03-31 00:00:00 2021-03-31 00:00:00 (TEL) STLMLC STLMLC [id number] [facility] 2021-03-26 00:00:00 2021-03-26 00:00:00 Outpatient GC_TNC_Tacho s_J [facility] [id number] [facility] 2021-03-09 00:00:00 2021-03-09 00:00:00 OFFICE VISIT ESTAB PT LEVEL 3 STLMLC STLMLC [id number] [facility] 2020-07-01 00:00:00 2020-07-01 00:00:00 Outpatient STLMLC STL[facility]C [id number] [facility] 2020-06-02 00:00:00 2020-06-02 00:00:00 Outpatient STLMLC STL[facility]C [id number] [facility] 2020-05-19 00:00:00 2020-05-19 00:00:00 Outpatient STLMLC STL[facility]C [id number] [facility] 2020-05-05 00:00:00 2020-05-05 00:00:00 Outpatient STLMLC STLMLC [id number] [facility] 2020-05-01 00:00:00 2020-05-01 00:00:00 Outpatient STLMLC STLMLC [id number] [facility]
[2023-09-22 08:35] LABS: Absolute Lymphocytes (CBC) 1.4 K/uL (0.7-4.9); Basophils % 0.7 % (0-1.3); Hematocrit 36.1 % (36.0-45.0); Lymphocytes % 20.9 % (15.3-44.8); MPV 7.6 fL (7.6-11.3); Platelets 193 thou/uL (152-406); RBC Red Blood Cell Count 3.97 M/uL (3.86-4.86)
[2023-09-22 08:36] LABS: Protime INR 1.07
--- NOTE | 2023-09-22 08:41 | RAD REPORT ---
EXAM DESCRIPTION: CTAbdomen Pelvis W Contrast - 09/22/2023 8:32 am CLINICAL HISTORY: Abdominal pain. ABD PAIN COMPARISON: Abdomen Pelvis W Contrast dated 05/20/2022; Abdomen Pelvis W Contrast dated 04/02/2021 ; Abdomen Pelvis W Contrast dated 05/25/2020 TECHNIQUE: Biphasic CT imaging of the abdomen and pelvis was performed with 100 ml non-ionic IV cont rast. All CT scans are performed using dose optimization technique as appropriate and may include automated exposure control or mA/KV adjustment according to patient size. FINDINGS: Mild linear atelectasis is present in both lung bases. The liver, spleen, pancreas, adrenal glands and kidneys are within normal limits. 4 cm duodenal diver ticulum noted. No bowel obstruction, free air, free fluid or abscess. The appendix is normal. No evidence of signi ficant lymphadenopathy. Mild lumbosacral degenerative changes. IMPRESSION: No acute intra-abdominal or pelvic finding.
[2023-09-22 09:05] LABS: ALT/SGPT 15 U/L (13-56); AST/SGOT 8 U/L (15-37); Albumin 3.3 g/dL (3.4-5.0); Alkaline Phosphatase 65 U/L (45-117); Anion Gap 6.2 mEq/L (5.0-15.0); BUN Blood Urea Nitrogen 14 mg/dL (7-18); Bicarbonate 27 mEq/L (21-32); Bilirubin Total 0.3 mg/dL (0.2-1.0); Glomerular Filtration Rate 102 ml/min (=/>90); Glucose Level 96 mg/dL (74-106); HDL Cholesterol 76 mg/dL (40-60); LDL Cholesterol, Calculated 110 mg/dL (<130); NT PRO-BNP 143 pg/mL (<125); Potassium 4.2 mEq/L (3.5-5.1); Protein, Total 6.7 g/dL (6.4-8.2); Sodium Level 138 mEq/L (136-145); Troponin High Sensitivity 4.2 pg/mL (<58.9)
[2023-09-22 09:08] LABS: Bilirubin Direct < 0.1 mg/dL (0-0.2); Bilirubin Indirect, Calculated ND mg/dL (0.2-0.8)
--- NOTE | 2023-09-22 09:16 | RAD REPORT ---
EXAM DESCRIPTION: RAD - Chest Single View - 09/22/2023 9:02 am CLINICAL HISTORY: COUGH Chest pain. COMPARISON: Chest Single View dated 04/02/2021 FINDINGS: Portable technique limits examination quality. The lungs are grossly clear except for mild atelectasis in the left lung base. . The heart is normal in size. No displaced fractures.Left axillary surgical clips. Cervical hardware plate. IMPRESSION: No acute intrathoracic process suspected.
[2023-09-22 09:36] LABS: Specific Gravity > 1.030 (1.005-1.030); Urine Bilirubin NEGATIVE (Negative); Urine Blood Negative (Negative); Urine Clarity Clear (Clear); Urine Color Colorless (Yellow); Urine Glucose NEGATIVE (Negative); Urine Protein NEGATIVE (Negative); Urine Urobilinogen Normal (Normal)
--- NOTE | 2023-09-22 11:31 | EDPHYS ---
Physician Documentation [facility] Name: Tiffany Jean Age: 63 yrs Sex: Female : 1960 Arrival Date: 09/22/2023 Time: 07:51 Bed 14 Private MD: ED Physician Kj Sanders HPI: 09/21 11:25 This 63 yrs old Female presents to ER via EMS with complaints of Abdominal laverne Pain. 11:25 The patient presents with abdominal pain in the right upper quadrant, right lower laverne quadrant. Onset: The symptoms/episode began/occurred 2 day(s) ago. The symptoms do not radiate. Associated signs and symptoms: none. The symptoms are described as crampy. Modifying factors: The symptoms are alleviated by nothing, the symptoms are aggravated by nothing. Severity of pain: At its worst the pain was moderate in the emergency department the pain is unchanged. The patient has not experienced similar symptoms in the past. Historical: - Allergies: 07:58 Codeine; kc6 - PMHx: 07:58 Irritable bowel syndrome; kc6 - PSHx: 07:58 hysterectomy; Neck sx; kc6 - Immunization history:: Adult Immunizations unknown. - Social history:: Smoking status: Patient reports the use of cigarette tobacco products, denies chronic smoking, but will smoke occasionally. ROS: 11:26 Constitutional: Negative for fever, chills, and weight loss, Eyes: Negative for injury, laverne pain, redness, and discharge, ENT: Negative for injury, pain, and discharge, Neck: Negative for injury, pain, and swelling, Cardiovascular: Negative for chest pain, palpitations, and edema, Respiratory: Negative for shortness of breath, cough, wheezing, and pleuritic chest pain, Back: Negative for injury and pain, : Negative for injury, bleeding, discharge, and swelling, MS/Extremity: Negative for injury and deformity, Skin: Negative for injury, rash, and discoloration, Neuro: Negative for headache, weakness, numbness, tingling, and seizure, Psych: Negative for depression, anxiety, suicide ideation, homicidal ideation, and hallucinations, Allergy/Immunology: Negative for hives, rash, and allergies, Endocrine: Negative for neck swelling, polydipsia, polyuria, polyphagia, and marked weight changes, Hematologic/Lymphatic: Negative for swollen nodes, abnormal bleeding, and unusual bruising, 11:26 Abdomen/GI: Positive for abdominal pain, abdominal cramps, of the posterior aspect of right lateral abdomen, anterior aspect of right lateral abdomen, right upper quadrant and right lower quadrant, Exam: 11:26 Constitutional: This is a well developed, well nourished patient who is awake, alert, laverne and in no acute distress. Head/Face: Normocephalic, atraumatic. Eyes: Pupils equal round and reactive to light, extra-ocular motions intact. Lids and lashes normal. Conjunctiva and sclera are non-icteric and not injected. Cornea within normal limits. Periorbital areas with no swelling, redness, or edema. ENT: Nares patent. No nasal discharge, no septal abnormalities noted. Tympanic membranes are normal and external auditory canals are clear. Oropharynx with no redness, swelling, or masses, exudates, or evidence of obstruction, uvula midline. Mucous membranes moist. Neck: Trachea midline, no thyromegaly or masses palpated, and no cervical lymphadenopathy. Supple, full range of motion without nuchal rigidity, or vertebral point tenderness. No Meningismus. Chest/axilla: Normal chest wall appearance and motion. Nontender with no deformity. No lesions are appreciated. Cardiovascular: Regular rate and rhythm with a normal S1 and S2. No gallops, murmurs, or rubs. Normal PMI, no JVD. No pulse deficits. Respiratory: Lungs have equal breath sounds bilaterally, clear to auscultation and percussion. No rales, rhonchi or wheezes noted. No increased work of breathing, no retractions or nasal flaring. Back: No spinal tenderness. No costovertebral tenderness. Full range of motion. Female : Normal external genitalia. Skin: Warm, dry with normal turgor. Normal color with no rashes, no lesions, and no evidence of cellulitis. MS/ Extremity: Pulses equal, no cyanosis. Neurovascular intact. Full, normal range of motion. Neuro: Awake and alert, GCS 15, oriented to person, place, time, and situation. Cranial nerves II-XII grossly intact. Motor strength 5/5 in all extremities. Sensory grossly intact. Cerebellar exam normal. Normal gait. Psych: Awake, alert, with orientation to person, place and time. Behavior, mood, and affect are within normal limits. 11:26 Abdomen/GI: Inspection: abdomen appears normal, Bowel sounds: normal, Palpation: moderate abdominal tenderness, in the posterior aspect of right lateral abdomen, anterior aspect of right lateral abdomen, right upper quadrant and right lower quadrant, Liver: no appreciated palpable abnormalities, Hernia: not appreciated, Vital Signs: 07:56 BP 99 / 50; Pulse 79; Resp 16 S; Temp 98(O); Pulse Ox 98% on R/A; Weight 56.7 kg (R); kc6 Height 5 ft. 2 in. (R); Pain 10/10; 09:07 BP 98 / 59; Pulse 65; Resp 16 S; Pulse Ox 96% on R/A; kc6 09:33 BP 121 / 75; kc6 09:59 BP 113 / 71; Pulse 68; Resp 14 S; Pulse Ox 98% on R/A; kc6 10:50 BP 121 / 69; Pulse 65; Resp 17 S; Pulse Ox 96% on R/A; 6 07:56 Body Mass Index 22.86 (56.70 kg, 157.48 cm) [facility] 07:56 Pain Scale: Adult [facility] MDM: 08:02 Patient medically screened. [facility] 11:28 Differential diagnosis: cholecystitis, diverticulitis, gastritis, Mesenteric ischemia laverne or infarction, myocardia ischemia or infarction, non-specific abd pain, pancreatitis, Peptic Ulcer Disease, Peritonitis, Ureterolithiasis, urinary tract infection. Data reviewed: vital signs, nurses notes, lab test result(s), EKG, radiologic studies, CT scan, plain films. Consideration of Admission/Observation Escalation of care including admission/observation considered. I considered the following discharge prescriptions or medication management in the emergency department Medications were administered in the Emergency Department. See MAR. Independent interpretation of the following test(s) in the Emergency Department EKG: See my EKG interpretation above. Test considered but Not performed: Ultrasound no gb usg. Historians other than the Patient: pt well informed. Care significantly affected by the following chronic conditions: IBS. Counseling: I had a detailed discussion with the patient and/or guardian regarding the historical points, exam findings, and any diagnostic results supporting the discharge/admit diagnosis, lab results, radiology results, the need for outpatient follow up, for definitive care, a family practitioner, a general surgeon. 09/21 08:04 Order name: Basic Metabolic Panel; Complete Time: 10:55 laverne 09/21 08:04 Order name: CBC with Diff; Complete Time: 10:55 [facility] 09/21 08:04 Order name: LFT's; Complete Time: 10:55 [facility] 09/21 08:04 Order name: Magnesium; Complete Time: 10:55 [facility] 09/21 08:04 Order name: NT PRO-BNP; Complete Time: 10:55 [facility] 09/21 08:04 Order name: PT-INR; Complete Time: 10:55 [facility] 09/21 08:04 Order name: Troponin HS; Complete Time: 10:55 [facility] 09/21 08:04 Order name: Lipid Profile; Complete Time: 10:55 [facility] 09/21 08:04 Order name: Urinalysis w/ reflexes; Complete Time: 10:55 [facility] 09/21 08:04 Order name: XRAY Chest (1 view); Complete Time: 10:55 [facility] 09/21 08:04 Order name: CT Abd/Pelvis - IV Contrast Only; Complete Time: 10:55 [facility] 09/21 08:04 Order name: EKG; Complete Time: 08:04 [facility] 09/21 08:04 Order name: Cardiac monitoring; Complete Time: 08:34 [facility] 09/21 08:04 Order name: EKG - Nurse/Tech; Complete Time: 08:34 [facility] 09/21 08:04 Order name: IV Saline Lock; Complete Time: 08:34 [facility] 09/21 08:04 Order name: Labs collected and sent; Complete Time: 08:34 [facility] 09/21 08:04 Order name: O2 Per Protocol; Complete Time: 08:34 [facility] 09/21 08:04 Order name: O2 Sat Monitoring; Complete Time: 08:34 [facility] Administered Medications: 08:34 Drug: fentaNYL (PF) IVP 50 mcg IVP once Route: IVP; Site: right antecubital; kc6 09:32 Follow up: Response: No adverse reaction; Pain is unchanged, physician notified; RASS: kc6 Alert and Calm (0) 08:34 Drug: Ondansetron IVP 4 mg IVP once; over 2 minutes Route: IVP; Site: right antecubital;kc6 09:32 Follow up: Response: No adverse reaction kc6 08:54 Drug: NS 0.9% IV 1000 ml IV at 1 bolus Per protocol; 1000 mL bolus Route: IV; Rate: 1 kc6 bolus; Site: right antecubital; 08:54 Drug: NS 0.9% IV 1000 ml IV at 125 ml/hr continuous Route: IV; Rate: 125 ml/hr; Site: kc6 right antecubital; 11:57 Drug: morphine IVP or IV 4 mg IVP once over 4 mins Route: IVP; Infused Over: 4 mins; kc6 Site: right antecubital; 11:58 Drug: Ondansetron IVP 4 mg IVP once; over 2 minutes Route: IVP; Site: right antecubital;kc6 Disposition Summary: 09/22/23 11:30 Discharge Ordered Notes: Location: Home [facility] Problem: new laverne Symptoms: have improved laverne Condition: Stable laverne Diagnosis - Abdominal tenderness laverne - Abnormal electrocardiogram [ECG] [EKG] laverne Followup: laverne - With: Private Physician - When: 2 - 3 days - Reason: Recheck today's complaints, Continuance of care, Re-evaluation by your physician Followup: laverne - With: Rohith Terrell MD - When: 2 - 3 days - Reason: Recheck today's complaints, Re-evaluation by your physician Followup: laverne - With: Rj Ness MD - When: 2 - 3 days - Reason: Recheck today's complaints, Re-evaluation by your physician Discharge Instructions: - Discharge Summary Sheet laverne - Abdominal Pain, Adult laverne - Abdominal Pain, Adult, [id number] [facility] Forms: - Medication Reconciliation Form [facility] - Thank You Letter [facility] - Antibiotic Education laverne - Prescription Opioid Use laverne - Patient Portal Instructions [facility] - Leadership Thank You Letter [facility] Prescriptions: - Pepcid 20 mg Oral Tablet - take 1 tablet ORAL route every 12 hours for 10 days; 20 tablet; Refills: 0, [facility] Product Selection Permitted - Zofran 4 mg Oral Tablet - take 1 tablet ORAL route every 12 hours As needed; 20 tablet; Refills: 0, [facility] Product Selection Permitted - dicyclomine 20 mg Oral tablet - take 1 tablet ORAL route 4 times per day; 28 tablet; Refills: 0, Product [facility] Selection Permitted Signatures: Dispatcher [employer] Kj Rousseau MD MD cha Campbell, Kaitlyn, RN RN kc6
--- NOTE | 2023-09-22 11:31 | ER ---
Nurse's Notes [facility] Name: Tiffany Jean Age: 63 yrs Sex: Female : 1960 Arrival Date: 09/22/2023 Time: 07:51 Bed 14 Private MD: Diagnosis: Abdominal tenderness;Abnormal electrocardiogram [ECG] [EKG] Presentation: 09/21 07:56 Chief complaint: EMS states: RLQ and suprapubic pain since last Monday. 30mg of IV kc6 Toradol given en route by EMS with no relief. pt reports pain /. Coronavirus screen: At this time, the client does not indicate any symptoms associated with coronavirus-19. Ebola Screen: No symptoms or risks identified at this time. Initial Sepsis Screen: Does the patient meet any 2 criteria? No. Patient's initial sepsis screen is negative. Does the patient have a suspected source of infection? No. Patient's initial sepsis screen is negative. Risk Assessment: Do you want to hurt yourself or someone else? Patient reports no desire to harm self or others. Onset of symptoms was September 22, 2023. 07:56 Method Of Arrival: EMS: [facility] kc6 07:56 Acuity: RUSS 3 kc6 Triage Assessment: 07:58 General: Appears in no apparent distress. uncomfortable, well groomed, well developed, kc6 Behavior is calm, cooperative, appropriate for age. Pain: Complains of pain in suprapubic area and right lower quadrant Pain does not radiate. Pain currently is 10 out of 10 on a pain scale. Noted to be grimacing, guarding, moaning, resistant to movement. EENT: No signs and/or symptoms were reported regarding the EENT system. Neuro: Level of Consciousness is awake, alert, obeys commands, Oriented to person, place, time, situation, Appropriate for age. Cardiovascular: Capillary refill < 3 seconds. Respiratory: Airway is patent Trachea midline Respiratory effort is even, unlabored, Respiratory pattern is regular, symmetrical. GI: Abdomen is flat, non-distended, Bowel sounds present X 4 quads. Abd is soft X 4 quads Abdomen is tender to palpation in suprapubic area and right lower quadrant Reports lower abdominal pain, Patient currently denies diarrhea, nausea, vomiting. Derm: No signs and/or symptoms reported regarding the dermatologic system. Skin is intact, is healthy with good turgor, Skin is pink, warm \T\ dry. Musculoskeletal: No signs and/or symptoms reported regarding the musculoskeletal system. Circulation, motion, and sensation intact. Capillary refill < 3 seconds, Range of motion: intact in all extremities. Historical: - Allergies: 07:58 Codeine; kc6 - PMHx: 07:58 Irritable bowel syndrome; kc6 - PSHx: 07:58 hysterectomy; Neck sx; kc6 - Immunization history:: Adult Immunizations unknown. - Social history:: Smoking status: Patient reports the use of cigarette tobacco products, denies chronic smoking, but will smoke occasionally. Screenin:00 [facility] ED Fall Risk Assessment (Adult) History of falling in the last 3 months, kc6 including since admission No falls in past 3 months (0 pts) Confusion or Disorientation No (0 pts) Intoxicated or Sedated No (0 pts) Impaired Gait No (0 pts) Mobility Assist Device Used No (0 pt) Altered Elimination No (0 pt) Score/Fall Risk Level 0 - 2 = Low Risk. Abuse screen: Denies threats or abuse. Denies injuries from another. Nutritional screening: No deficits noted. Tuberculosis screening: No symptoms or risk factors identified. Assessment: 08:00 Reassessment: please see triage. 6 09:00 Reassessment: Patient appears in no apparent distress at this time. No changes from [facility] previously documented assessment. Patient and/or family updated on plan of care and expected duration. Pain level reassessed. Patient is alert, oriented x 3, equal unlabored respirations, skin warm/dry/pink. 09:59 Reassessment: Patient appears in no apparent distress at this time. No changes from kc6 previously documented assessment. Patient and/or family updated on plan of care and expected duration. Pain level reassessed. Patient is alert, oriented x 3, equal unlabored respirations, skin warm/dry/pink. 10:50 Reassessment: Patient appears in no apparent distress at this time. No changes from 6 previously documented assessment. Patient and/or family updated on plan of care and expected duration. Pain level reassessed. Patient is alert, oriented x 3, equal unlabored respirations, skin warm/dry/pink. Patient states symptoms have not improved. Vital Signs: 07:56 BP 99 / 50; Pulse 79; Resp 16 S; Temp 98(O); Pulse Ox 98% on R/A; Weight 56.7 kg (R); kc6 Height 5 ft. 2 in. (R); Pain 10/10; 09:07 BP 98 / 59; Pulse 65; Resp 16 S; Pulse Ox 96% on R/A; kc6 09:33 BP 121 / 75; kc6 09:59 BP 113 / 71; Pulse 68; Resp 14 S; Pulse Ox 98% on R/A; kc6 10:50 BP 121 / 69; Pulse 65; Resp 17 S; Pulse Ox 96% on R/A; kc6 07:56 Body Mass Index 22.86 (56.70 kg, 157.48 cm) kc6 07:56 Pain Scale: Adult kc6 ED Course: 07:56 Patient arrived in ED. kc6 07:58 Triage completed. kc6 07:58 Arm band placed on. kc6 07:59 Maintain EMS IV. Dressing intact. Good blood return noted. Site clean \T\ dry. Gauge \T\ jack 6 site: 18G RAC. Patient maintains SpO2 saturation greater than 95% on room air. 08:00 Patient has correct armband on for positive identification. Placed in gown. Bed in low kc6 position. Call light in reach. Side rails up X2. Adult w/ patient. Client placed on continuous cardiac and pulse oximetry monitoring. NIBP monitoring applied. 08:02 Kj Sanders MD is Attending Physician. laverne 08:08 Emily Frank, DAMON is Primary Nurse. kc6 08:15 monitoring tech on. Pulse ox on. NIBP on. hb 08:34 CT Abd/Pelvis - IV Contrast Only In Process Unspecified. EDMS 09:04 XRAY Chest (1 view) In Process Unspecified. EDMS 09:33 Urinalysis w/ reflexes Sent. kc6 11:30 Rohith Terrell MD is Referral Physician. laverne 11:31 Rj Ness MD is Referral Physician. laverne 12:08 No provider procedures requiring assistance completed. IV discontinued, intact, kc6 bleeding controlled, No redness/swelling at site. Pressure dressing applied. Administered Medications: 08:34 Drug: fentaNYL (PF) IVP 50 mcg IVP once Route: IVP; Site: right antecubital; kc6 09:32 Follow up: Response: No adverse reaction; Pain is unchanged, physician notified; RASS: kc6 Alert and Calm (0) 08:34 Drug: Ondansetron IVP 4 mg IVP once; over 2 minutes Route: IVP; Site: right antecubital;kc6 09:32 Follow up: Response: No adverse reaction kc6 08:54 Drug: NS 0.9% IV 1000 ml IV at 1 bolus Per protocol; 1000 mL bolus Route: IV; Rate: 1 kc6 bolus; Site: right antecubital; 08:54 Drug: NS 0.9% IV 1000 ml IV at 125 ml/hr continuous Route: IV; Rate: 125 ml/hr; Site: kc6 right antecubital; 11:57 Drug: morphine IVP or IV 4 mg IVP once over 4 mins Route: IVP; Infused Over: 4 mins; kc6 Site: right antecubital; 11:58 Drug: Ondansetron IVP 4 mg IVP once; over 2 minutes Route: IVP; Site: right antecubital;kc6 Medication: 12:09 VIS not applicable for this client. kc6 Outcome: 11:30 Discharge ordered by MD. galloway 12:09 Discharged to home ambulatory, with family, kc6 12:09 Condition: good 12:09 Discharge instructions given to patient, family, Instructed on discharge instructions, follow up and referral plans. medication usage, Demonstrated understanding of instructions, follow-up care, medications, Prescriptions given X 3, 12:09 Patient left the ED. kc6 Signatures: Dispatcher [employer] Kj Rousseau MD MD cha Baxter, Heather, RN RN hb Campbell, Kaitlyn, RN RN kc6
[2023-09-22 12:26] VITALS: BP 121/69; TEMP 98; O2SAT 96
== END ==
LOC: ER 07:51
DX: R10.813 Right lower quadrant abdominal tenderness (principal); R94.31 Abnormal electrocardiogram [ECG] [EKG]; F17.210 Nicotine dependence, cigarettes, uncomplicated; Z88.5 Allergy status to narcotic agent
CPT/HCPCS: 93005; 85025; 80048; 36415; 83735; 85610; 80061; 80076; 81003; 84484; 83880; 74177; 71045; 96375; 96374; 99285; Q9967; J2405